=== PATIENT | male | born 1975 ===

== ENCOUNTER 2017-02-20 08:55 | Inpatient (IN) | payer OTHER, SELFPAY ==
[2017-02-20 09:33] VITALS: BMI 34.3
[2017-02-20] MEDS ORDERED: Midazolam 2 MG/2 ML VIAL ONE (13:35)
[2017-02-20] MEDS ORDERED: Propofol 10 mg/ml Inj (20 ML) ONE ×2 (13:35→14:24)
[2017-02-20] MEDS ORDERED: Lactated Ringer's 1,000 ML IV ONE ×2 (13:45→16:00)
[2017-02-20] MEDS ORDERED: Bupivacaine-Epi 0.25%-1:200,000 PF Inj ONE (13:49)
[2017-02-20] MEDS ORDERED: ceFAZolin IV 2 gm in Dextrose 1 GM/50 ML BAG IVPB ONE (13:49)
[2017-02-20] MEDS ORDERED: Oxycodone/Acetaminophen 5/325 mg Tab PO PRN (14:39)
[2017-02-20] MEDS ORDERED: HYDROmorphone 0.5 mg/0.5 ml ISec IVP PRN (14:51)
--- NOTE | 2017-02-20 15:38 | CP.PCM.CON ---
History of Present Illness - History of Present Illness History of Present Illness: Medical team consulted for medical issues post surgery. CC: "I feel good." HPI: Patient is a 41 year old male with no known PMHx presenting in PACU s/p anal fistulectomy POD #[address] Jeter. Medical team consulted for medical management. Patient is very sleepy. Patient denies any medical problems. Patient denies any pain. Patient denies fever, chills, sweating, chest pain, SOB, nausea, vomiting, dysuria. PMHx: denies PSHx: right eye surgery, anal fistulectomy 02/20/17 Home Meds: none Allergies: NKDA Social Hx: drinks 6 beers on the weekends, denies smoking history ever, denies illicit drug use Family Hx: denies CA, ID, CVA, HTN, DM in the family. Reviewed and not pertinent. Review of Systems - Constitutional Constitutional: absent: Chills, Fever - EENT Eyes: absent: Change in Vision Ears: absent: Dizziness - Cardiovascular Cardiovascular: absent: Chest Pain - Respiratory Respiratory: absent: Cough, Dyspnea - Gastrointestinal Gastrointestinal: absent: Abdominal Pain, Nausea, Vomiting - Genitourinary Genitourinary: absent: Dysuria - Musculoskeletal Musculoskeletal: absent: Back Pain, Neck Pain - Integumentary Integumentary: absent: Skin Pain - Neurological Neurological: absent: Headaches - Endocrine Endocrine: absent: Palpitations - Hematologic/Lymphatic Hematologic: absent: Easy Bleeding, Easy Bruising Past Patient History - Past Medical History & Family History Past Medical History?: Yes Past Family History: Reviewed and not pertinent - Past Social History Smoking Status: Never Smoked Alcohol: > 2 Drinks/Day (on weekends) Drugs: Denies - CARDIAC Hx Cardiac Disorders: No - PULMONARY Hx Respiratory Disorders: No - NEUROLOGICAL Hx Neurological Disorder: No - HEENT Hx HEENT Problems: No - RENAL Hx Chronic Kidney Disease: No - ENDOCRINE/METABOLIC Hx Endocrine Disorders: No - INTEGUMENTARY Hx Dermatological Problems: No - MUSCULOSKELETAL/RHEUMATOLOGICAL Hx Musculoskeletal Disorders: No - GASTROINTESTINAL Hx Gastrointestinal Disorders: Yes Other/Comment: Anal fistula? - GENITOURINARY/GYNECOLOGICAL Hx Genitourinary Disorders: No - PSYCHIATRIC Hx Psychophysiologic Disorder: No - SURGICAL HISTORY Hx Surgeries: No - ANESTHESIA Hx Anesthesia: No Has any member of the family had a problem w/ anesthesia?: No Meds Allergies/Adverse Reactions: Allergies Allergy/AdvReac Type Severity Reaction Status Date / Time No Known Allergies Allergy Verified 02/16/17 10:20 - Medications Medications: Current Medications Docusate Sodium (Colace) 100 mg PO BID [facility] Enoxaparin Sodium (Lovenox) 30 mg SC 1000,2200 [facility] Hydromorphone HCl (Dilaudid) 0.5 mg IVP Q5M PRN PRN Reason: Pain, severe (8-10) Stop: 02/20/17 16:51 Cefazolin Sodium 1,000 mg/ (Sodium Chloride) 50 mls @ 100 mls/hr IVPB Q8H [facility] Famotidine 20 mg/ Sodium (Chloride) 52 mls @ 100 mls/hr IV Q12 [facility] Ketorolac Tromethamine (Toradol) 30 mg IVP Q6 PRN PRN Reason: pain 8-10 Stop: 02/25/17 14:40 Ondansetron HCl (Zofran Inj) 4 mg IVP Q6 PRN PRN Reason: Nausea/Vomiting Ondansetron HCl (Zofran Inj) 4 mg IVP ONCE PRN PRN Reason: Nausea/Vomiting Stop: 02/20/17 16:52 Oxycodone/Acetaminophen (Percocet 5/325 Mg Tab) 2 tab PO Q4H PRN PRN Reason: pain Stop: 02/23/17 14:40 Sennosides (Senokot Tab) 17.2 mg PO HS [facility] Physical Exam - Constitutional Appears: Non-toxic, No Acute Distress - Head Exam Head Exam: NORMAL INSPECTION - Eye Exam Eye Exam: EOMI - ENT Exam ENT Exam: Mucous Membranes Moist - Respiratory Exam Respiratory Exam: Clear to Auscultation Bilateral, NORMAL BREATHING PATTERN. absent: Rales, Rhonchi, Wheezes - Cardiovascular Exam Cardiovascular Exam: REGULAR RHYTHM, +S1, +S2. absent: Gallop, Rubs, Systolic Murmur - GI/Abdominal Exam GI & Abdominal Exam: Normal Bowel Sounds, Soft. absent: Distended, Firm, Guarding, Tenderness - Extremities Exam Extremities exam: Positive for: normal capillary refill. Negative for: pedal edema - Neurological Exam Neurological exam: Alert - Psychiatric Exam Psychiatric exam: Normal Affect, Normal Mood - Skin Skin Exam: Normal Color, Warm Results - Vital Signs Recent Vital Signs: Last Vital Signs Temp 98.2 F 02/20/17 14:48 Pulse 89 02/20/17 15:00 Resp 19 02/20/17 15:00 BP 128/77 02/20/17 15:00 Pulse Ox 97 02/20/17 15:00 Assessment & Plan - Assessment and Plan (Free Text) Assessment: Patient has no acute medical issues. Management per surgery. Will follow. Call as needed. Anal fistula Managed by Dr. Jeter Regular Diet CBc and CMP in AM Colace 100mg PO BID Ancef 1gm IVPB Q8 Toradol 30mg IVP Q6 PRN Zofran 4mg IVP Q6 PRN Percocet 2tab Q4H PRN Sennosides A and B 17.2mg PO HS Prophylaxis Lovenox 30mg SC 1000,2200 Pepcid 20mg IV Q12
[2017-02-20] MEDS: Enoxaparin 30 mg Syringe SC SCH (22:12)
[2017-02-21 07:33] LABS: BASO % 0.5 % (0.0-2.0); EOS # 0.1 K/uL (0.0-0.7); EOS % 1.2 % (0.0-4.0); HEMOGLOBIN 15.1 g/dL (12.0-18.0); LYMPH # 1.9 K/uL (1.0-4.3); LYMPH % 23.4 % (20.0-40.0); MEAN CELL VOLUME 92.4 fL (80.0-94.0); MEAN CORPUSCULAR HEMOGLOBIN 30.9 pg (27.0-31.0); MEAN CORPUSCULAR HGB CONC 33.4 g/dL (33.0-37.0); MEAN PLATELET VOLUME 8.5 fL (7.2-11.7); MONO # 0.6 K/uL (0.0-0.8); NEUT # 5.7 K/uL (1.8-7.0); NEUT % 67.9 % (50.0-75.0); NRBC % 0.1 % (0.0-2.0); RBC 4.9 Mil/uL (4.40-5.90); RED CELL DISTRIBUTION WIDTH 13.5 % (11.5-14.5); WHITE BLOOD COUNT 8.3 K/uL (4.8-10.8)
[2017-02-21 07:47] LABS: ALBUMIN 3.9 g/dL (3.5-5.0)
[2017-02-21 07:50] LABS: AST/SGOT 24 U/L (17-59); GFR AFRICAN-AMERICAN > 60; GFR NON-AFRICAN AMERICAN > 60
[2017-02-21 07:51] LABS: ALB/GLOB RATIO 1.2 (1.0-2.1); ALT/SGPT 38 U/L (21-72); BLOOD UREA NITROGEN 18 mg/dL (9-20); CALCIUM 8.8 mg/dl (8.6-10.4)
[2017-02-21] MEDS: Enoxaparin 30 mg Syringe SC SCH ×2 (10:07→21:58)
--- NOTE | 2017-02-21 10:40 | OP ---
PROCEDURE DATE: PREOPERATIVE DIAGNOSIS: Perianal fistula and abscess. POSTOPERATIVE DIAGNOSIS: Perianal fistula and abscess. PROCEDURE PERFORMED: Drainage of rectal abscess with I and D of perianal fistula. SURGEON: Jeff Jeter MD TYPE OF ANESTHESIA: General. ESTIMATED BLOOD LOSS: 30 mL. POSTOPERATIVE CONDITION: Stable. 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 DESCRIPTION OF PROCEDURE: The patient was taken to the operating room and general anesthesia was administered with the patient in the the prone jackknife position. The abscess was drained, cultured and a probe was placed to the midline of the rectum *------* with Goodsall's rule. The overlying tissue was divided and intersphincteric abscess was noted. The fistulous cavity was cauterized, removed and bleeding was controlled using the Bovie. A larger blood vessel was repaired. The wound was irrigated with saline and packed with wet saline gauze after cultures were taken. The patient tolerated the procedure well and returned to the recovery room in stable condition. Jeff Jeter MD
[2017-02-21] MEDS ORDERED: ceFAZolin 1 gm FROZEN Premix 1 GM/50 ML ML IVPB SCH (11:00)
--- NOTE | 2017-02-21 11:51 | CP.PCM.PN ---
Subjective - Date & Time of Evaluation Date of Evaluation: 02/21/17 Time of Evaluation: 11:48 - Subjective Subjective: PGY-[address] Mackenzie's service: Pt seen and examined at bedside. Nursing reports no acute events overnight. Pt is POD#1 of fistulectomy. He reports feeling only a "little bit" of pain at the site of the surgery, and denied needing any of the PRN pain medications. He admits to trepidation regarding moving his bowels, but denies abdominal pain, nausea, vomiting, or diarrhea. Objective - Vital Signs/Intake and Output Vital Signs (last 24 hours): Temp Pulse Resp BP Pulse Ox 98.3 F 89 20 124/83 95 02/21/17 09:29 02/21/17 09:29 02/21/17 09:29 02/21/17 09:29 02/21/17 09:29 Intake and Output: 02/21/17 02/21/17 06:59 18:59 Intake Total 940 Output Total 400 Balance 540 - Medications Medications: Current Medications Docusate Sodium (Colace) 100 mg PO BID [facility] Last Admin: 02/21/17 10:07 Dose: 100 mg Enoxaparin Sodium (Lovenox) 30 mg SC 1000,2200 [facility] Last Admin: 02/21/17 10:07 Dose: 30 mg Famotidine (Pepcid) 20 mg IVP Q12 [facility] Cefazolin Sodium (Ancef) 1 gm in 50 mls @ 100 mls/hr IVPB Q8H [facility] Ketorolac Tromethamine (Toradol) 30 mg IVP Q6 PRN PRN Reason: pain 8-10 Stop: 02/25/17 14:40 Ondansetron HCl (Zofran Inj) 4 mg IVP Q6 PRN PRN Reason: Nausea/Vomiting Oxycodone/Acetaminophen (Percocet 5/325 Mg Tab) 2 tab PO Q4H PRN PRN Reason: pain Stop: 02/23/17 14:40 Pneumococcal Polyvalent Vaccine (Pneumovax 23 Vaccine) 0.5 ml IM .ONCE ONE Stop: 02/22/17 10:01 Sennosides (Senokot Tab) 17.2 mg PO HS [facility] Last Admin: 02/20/17 22:12 Dose: 17.2 mg - Labs Labs: 02/21/17 07:08 02/21/17 07:08 - Constitutional Appears: Non-toxic, No Acute Distress - Head Exam Head Exam: ATRAUMATIC, NORMAL INSPECTION, NORMOCEPHALIC - Eye Exam Eye Exam: EOMI. absent: Scleral icterus Pupil Exam: PERRL - ENT Exam ENT Exam: Mucous Membranes Moist - Neck Exam Neck Exam: Full ROM. absent: Lymphadenopathy - Respiratory Exam Respiratory Exam: Clear to Ausculation Bilateral, NORMAL BREATHING PATTERN. absent: Accessory Muscle Use, Rales, Rhonchi, Wheezes - Cardiovascular Exam Cardiovascular Exam: REGULAR RHYTHM, +S1, +S2 - GI/Abdominal Exam GI & Abdominal Exam: Soft, Normal Bowel Sounds. absent: Tenderness - Rectal Exam Additional comments: Bandage clean, dry, intact Gauze in place at site of fistulectomy - Extremities Exam Extremities Exam: Normal Inspection. absent: Pedal Edema, Tenderness - Back Exam Back Exam: absent: CVA tenderness (L), CVA tenderness (R) - Neurological Exam Neurological Exam: Alert, Awake, Oriented x3 - Psychiatric Exam Psychiatric exam: Normal Affect, Normal Mood - Skin Skin Exam: Dry, Normal Color, Warm Assessment and Plan - Assessment and Plan (Free Text) Plan: Anal fistula Managed by Dr. Jeter Pt afebrile overnight, normotensive AM CBC/CMP WNL - No leukocytosis/anemia Colace 100mg PO BID Ancef 1gm IVPB Q8 (start 02/21) Toradol 30mg IVP Q6 PRN Zofran 4mg IVP Q6 PRN Percocet 2tab Q4H PRN Sennosides A and B 17.2mg PO HS Prophylaxis Lovenox 30mg SC 1000,2200 Pepcid 20mg IV Q12 Regular Diet Discussed with Dr. Avril Davis PGY-1
[2017-02-21] MEDS: ceFAZolin 1 gm FROZEN Premix 1 GM/50 ML ML IVPB SCH ×2 (13:00→22:00)
[2017-02-22 01:32] VITALS: RESP 20
[2017-02-22] MEDS: ceFAZolin 1 gm FROZEN Premix 1 GM/50 ML ML IVPB SCH ×2 (04:06→12:15)
[2017-02-22 08:09] VITALS: BP 134/87; PULSE 83; TEMP 98.8
[2017-02-22 08:15] LABS: BASO # 0.1 K/uL (0.0-0.2); BASO % 0.7 % (0.0-2.0); EOS # 0.1 K/uL (0.0-0.7); EOS % 0.9 % (0.0-4.0); HEMOGLOBIN 15.8 g/dL (12.0-18.0); LYMPH # 1.8 K/uL (1.0-4.3); LYMPH % 19.5 % (20.0-40.0); MEAN CELL VOLUME 92.7 fL (80.0-94.0); MEAN CORPUSCULAR HEMOGLOBIN 30.8 pg (27.0-31.0); MEAN CORPUSCULAR HGB CONC 33.2 g/dL (33.0-37.0); MEAN PLATELET VOLUME 8.3 fL (7.2-11.7); MONO # 0.6 K/uL (0.0-0.8); MONO % 6.1 % (0.0-10.0); NEUT # 6.9 K/uL (1.8-7.0); NEUT % 72.8 % (50.0-75.0); NRBC % 0.1 % (0.0-2.0); RBC 5.15 Mil/uL (4.40-5.90); RED CELL DISTRIBUTION WIDTH 13.6 % (11.5-14.5); WHITE BLOOD COUNT 9.4 K/uL (4.8-10.8)
[2017-02-22 08:24] VITALS: O2SAT 97
[2017-02-22 08:38] LABS: ALBUMIN 4.1 g/dL (3.5-5.0)
[2017-02-22 08:40] LABS: GFR AFRICAN-AMERICAN > 60; GFR NON-AFRICAN AMERICAN > 60
[2017-02-22 08:41] LABS: ALB/GLOB RATIO 1.2 (1.0-2.1); ALT/SGPT 32 U/L (21-72); AST/SGOT 22 U/L (17-59); BLOOD UREA NITROGEN 10 mg/dL (9-20)
[2017-02-22 08:42] LABS: CALCIUM 8.9 mg/dl (8.6-10.4); MAGNESIUM 2.3 mg/dL (1.6-2.3)
[2017-02-22] MEDS: Enoxaparin 30 mg Syringe SC SCH (09:47)
[2017-02-22] MEDS ORDERED: Pneumococcal 23-Valent Vaccine IM ONE (10:00)
--- NOTE | 2017-02-22 12:12 | CP.PCM.PN ---
<Zbigniew Davis - Last Filed: 02/22/17 12:09> Subjective - Date & Time of Evaluation Date of Evaluation: 02/22/17 Time of Evaluation: 12:10 - Subjective Subjective: PGY-[address] Pritchett's Service: Pt seen and examined at bedside. Nursing reports changing dressing as per Dr. Jeter's instructions this AM. Pt is POD#2 of fistulectomy. He reports only a minor pain at the site of the surgery, and denied needing any of the PRN pain medications. Patient reports one BM post-procedure. He admits tolerating diet and urinating without difficulty. He denies chest pain, palpitations, abdominal pain, nausea, vomiting or diarrhea. Objective - Vital Signs/Intake and Output Vital Signs (last 24 hours): Temp Pulse Resp BP Pulse Ox 98.8 F 83 20 134/87 97 02/22/17 08:08 02/22/17 08:08 02/22/17 08:08 02/22/17 08:08 02/22/17 08:23 Intake and Output: 02/22/17 02/22/17 06:59 18:59 Intake Total 350 Balance 350 - Medications Medications: Current Medications Docusate Sodium (Colace) 100 mg PO BID [facility] Last Admin: 02/22/17 09:46 Dose: 100 mg Enoxaparin Sodium (Lovenox) 30 mg SC 1000,2200 [facility] Last Admin: 02/22/17 09:47 Dose: 30 mg Famotidine (Pepcid) 20 mg IVP Q12 [facility] Last Admin: 02/22/17 09:46 Dose: 20 mg Cefazolin Sodium (Ancef) 1 gm in 50 mls @ 100 mls/hr IVPB Q8H [facility] Last Admin: 02/22/17 04:06 Dose: 100 mls/hr Ketorolac Tromethamine (Toradol) 30 mg IVP Q6 PRN PRN Reason: pain 8-10 Stop: 02/25/17 14:40 Ondansetron HCl (Zofran Inj) 4 mg IVP Q6 PRN PRN Reason: Nausea/Vomiting Oxycodone/Acetaminophen (Percocet 5/325 Mg Tab) 2 tab PO Q4H PRN PRN Reason: pain Stop: 02/23/17 14:40 Sennosides (Senokot Tab) 17.2 mg PO HS [facility] Last Admin: 02/21/17 21:58 Dose: 17.2 mg - Labs Labs: 02/22/17 08:04 02/22/17 08:04 - Additional Findings Additional findings: - Constitutional Appears: Non-toxic, No Acute Distress - Head Exam Head Exam: ATRAUMATIC, NORMAL INSPECTION, NORMOCEPHALIC - Eye Exam Eye Exam: EOMI. absent: Scleral icterus Pupil Exam: PERRL - ENT Exam ENT Exam: Mucous Membranes Moist - Neck Exam Neck Exam: Full ROM. absent: Lymphadenopathy - Respiratory Exam Respiratory Exam: Clear to Ausculation Bilateral, NORMAL BREATHING PATTERN. absent: Accessory Muscle Use, Rales, Rhonchi, Wheezes - Cardiovascular Exam Cardiovascular Exam: REGULAR RHYTHM, +S1, +S2 - GI/Abdominal Exam GI & Abdominal Exam: Soft, Normal Bowel Sounds. absent: Tenderness - Rectal Exam Additional comments: Bandage clean, dry, intact Gauze in place at site of fistulectomy - Extremities Exam Extremities Exam: Normal Inspection. absent: Pedal Edema, Tenderness - Back Exam Back Exam: absent: CVA tenderness (L), CVA tenderness (R) - Neurological Exam Neurological Exam: Alert, Awake, Oriented x3 - Psychiatric Exam Psychiatric exam: Normal Affect, Normal Mood - Skin Skin Exam: Dry, Normal Color, Warm Assessment and Plan - Assessment and Plan (Free Text) Plan: Anal fistula Managed by Dr. Jeter Pt afebrile overnight, normotensive AM CBC/CMP WNL - No leukocytosis/anemia Colace 100mg PO BID Ancef 1gm IVPB Q8 (start 02/21) Toradol 30mg IVP Q6 PRN Zofran 4mg IVP Q6 PRN Percocet 2tab Q4H PRN Sennosides A and B 17.2mg PO HS Hypokalemia K 3.5 on AM labs - repleted with Kdur Prophylaxis Lovenox 30mg SC 1000,2200 Pepcid 20mg IV Q12 Regular Diet Disposition: Dr. Jeter has marked pt for discharge. Medical team signing off. Discussed with Dr. Yarely Davis PGY-1 <Maritza Pritchett V - Last Filed: 02/22/17 21:03> Objective - Vital Signs/Intake and Output Vital Signs (last 24 hours): Temp Pulse Resp BP Pulse Ox 98.8 F 83 20 134/87 97 02/22/17 08:08 02/22/17 08:08 02/22/17 08:08 02/22/17 08:08 02/22/17 08:23 Intake and Output: 02/22/17 02/23/17 18:59 06:59 Intake Total 290 Balance 290 - Labs Labs: 02/22/17 08:04 02/22/17 08:04 Attending/Attestation - Attestation I have personally seen and examined this patient.: Yes I have fully participated in the care of the patient.: Yes I have reviewed all pertinent clinical information, including history, physical exam and plan: Yes Notes (Text): Patient seen, examined, and case discussed with day-time resident. Patient seen at bedside this morning. Patient awake and alert in no acute distress. Dressing changed prior to my arrival. Per patient, he was instructed by surgery to follow-up this Monday at his office post-surgery. Patient reports he sees VINCENT Rush as outpatient. Patient had bowel movement today. Discharge instructions per general surgery who is primary on the case. Surgery decision-making including preoperative/intraoperative/post operative per general surgery. Patient's potassium repleted prior to discharge. Patient is medically stable. Advised to follow-up with general surgery and primary care doctor. Assessment/Plan 1) Anal fistula Primary/general surgery: Dr. Yang Surgery decision-making including preoperative/intraoperative/post operative per general surgery. Pt afebrile overnight, normotensive AM CBC/CMP WNL - No leukocytosis/anemia POD 2: Drainage of rectal abscess with I&D of perianal fistula Management per surgery: * Colace 100mg PO BID * Ancef 1gm IVPB Q8 (start 02/21) * Toradol 30mg IVP Q6 PRN * Zofran 4mg IVP Q6 PRN * Percocet 2tab Q4H PRN * Sennosides A and B 17.2mg PO HS 2) Hypokalemia * K 3.5 on AM labs * Given repleted with Kdur 3) Prophylaxis * Anticoagulation per surgery: Lovenox 30mg SC 1000,2200 * Pepcid 20mg IV Q12 * Regular Diet Disposition: Dr. Jeter (general surgery and primary) has discharged patient after dressing change. Medicine team has signed off.
[2017-02-22] MEDS ORDERED: Potassium Chloride 20 mEq ER Tab PO ONE (12:30)
== END 2017-02-22 14:45 | disposition home or self-care (01) | DRG 153 ==
LOC: C.SDS 08:55 → C.9S 14:10 → C.3T 20:05
PROVIDERS: ADMIT Surgery; ATTEND Surgery
PROC: 0D9P0ZZ Drainage of Rectum, Open Approach (ICD-10-PCS; 2017-02-20)
PROC: 0HB9XZZ Excision of Perineum Skin, External Approach (ICD-10-PCS; 2017-02-20)
PROC: 0D9Q0ZZ Drainage of Anus, Open Approach (ICD-10-PCS; principal; 2017-02-20 11:00)
DX: K61.2 Anorectal abscess (principal); K60.2 Anal fissure, unspecified; K61.4 Intrasphincteric abscess

== ENCOUNTER 2017-02-26 20:00 | Emergency (ER) | payer OTHER ==
[2017-02-26 20:00] VITALS: BMI 34.3
[2017-02-26] MEDS ORDERED: Sodium Chloride 0.9% 1,000 ML IV ONE (20:38)
[2017-02-26] MEDS ORDERED: Sodium Chloride 0.9% 1,000 ML ONE (20:44)
--- NOTE | 2017-02-26 20:50 | C.PDOC ---
History Of Present Illness A 41 y/o M s/p rectal fistuolotomy, c/o lower abdominal pain and unable to void and have bm. pt reports unable to void today. reports uanble to have bm since surgery, but passing gas. bladder scan was done on arrival and pt has more than 1 liter of urine in his bladder. Chinchilla placed, with resolution of pain Denies fever, chills, nausea, vomiting, or any other complaints. Time Seen by Provider: 02/26/17 20:29 Chief Complaint (Nursing): Male Genitourinary History Per: Patient History/Exam Limitations: no limitations Onset/Duration Of Symptoms: Hrs Current Symptoms Are (Timing): Still Present Severity: Mild Quality Of Discomfort: "Pain" Associated Symptoms: Constipation Recent travel outside of the [place]: No Additional History Per: Patient Past Medical History Reviewed: Historical Data, Nursing Documentation, Vital Signs Vital Signs: Last Vital Signs Temp 98.3 F 02/26/17 20:07 Pulse 80 02/26/17 20:07 Resp 14 02/26/17 20:07 BP 129/84 02/26/17 20:07 Pulse Ox 99 02/26/17 20:52 - Medical History PMH: Denies: Chronic Kidney Disease - [facility] Procedures DRAINAGE OF ANUS, OPEN APPROACH (02/20/17) DRAINAGE OF RECTUM, OPEN APPROACH (02/20/17) EXCISION OF PERINEUM SKIN, EXTERNAL APPROACH (02/20/17) Family History: States: Unknown Family Hx - Social History Hx Alcohol Use: No Hx Substance Use: No Review Of Systems Except As Marked, All Systems Reviewed And Found Negative. Constitutional: Negative for: Fever, Chills Gastrointestinal: Positive for: Abdominal Pain (Lower abdominal pain), Constipation (No BM today). Negative for: Nausea, Vomiting Physical Exam - Physical Exam Appears: Non-toxic, No Acute Distress Skin: Warm, Dry Head: Atraumatic, Normacephalic Cardiovascular: Rhythm Regular Respiratory: Normal Breath Sounds, No Rales, No Rhonchi, No Wheezing Gastrointestinal/Abdominal: Soft, No Tenderness, Distention (Moderate abdominal distention) Rectal: Other (Packing and clean dressing in place) Neurological/Psych: Oriented x3, Normal Speech, Normal Cognition ED Course And Treatment - Laboratory Results Result Diagrams: 02/26/17 20:46 02/26/17 20:46 O2 Sat by Pulse Oximetry: 99 (RA) Pulse Ox Interpretation: Normal Medical Decision Making Medical Decision Making: Impression: A 41 y/o M c/o lower abdominal pain and being unable to have bowel movement today. Pt s/p rectal fistuolotomy. Chinchilla in place. urinary retention. Plans: -Blood work up -IV fluids -Reassess 1020: abd sof tno ttp. obstructive series neg. case discussed with dr calles, covering dr jeter. advise d/c home with mineral oil and flomax. nursing home social worker f/u up with dr jeter. labs unremarkable electrolytes unremarkalbe. nrormal cr. stable for outpt management. Disposition - Disposition Referrals: Ibrahima Chacon MD [Staff Provider] - Jeff Jeter MD [Staff Provider] - Disposition: HOME/ ROUTINE Disposition Time: 22:23 Condition: STABLE Additional Instructions: please follow up with specialists and your doctor. return to er with worsening symptoms or concerns. Prescriptions: Mineral Oil [Mineral Oil 30ml] 30 ml PO DAILY PRN #5 cup PRN Reason: Constipation Tamsulosin [Flomax] 0.4 mg PO DAILY #10 cap Instructions: Constipation (ED), Urinary Retention in Men (ED) - Clinical Impression Clinical Impression: Urinary retention, Constipation - Scribe Statement The provider has reviewed the documentation as recorded by the Scribe Yennifer garcía All medical record entries made by the Scribe were at my direction and personally dictated by me. I have reviewed the chart and agree that the record accurately reflects my personal performance of the history, physical exam, medical decision making, and the department course for this patient. I have also personally directed, reviewed, and agree with the discharge instructions and disposition.
[2017-02-26 20:51] LABS: BASO % 0.3 % (0.0-2.0); EOS # 0.1 K/uL (0.0-0.7); EOS % 0.9 % (0.0-4.0); HEMATOCRIT 45.8 % (35.0-51.0); LYMPH # 2.3 K/uL (1.0-4.3); LYMPH % 23.6 % (20.0-40.0); MEAN CELL VOLUME 92.4 fL (80.0-94.0); MEAN CORPUSCULAR HEMOGLOBIN 31.2 pg (27.0-31.0); MEAN CORPUSCULAR HGB CONC 33.7 g/dL (33.0-37.0); MEAN PLATELET VOLUME 7.9 fL (7.2-11.7); MONO # 0.6 K/uL (0.0-0.8); MONO % 6.2 % (0.0-10.0); NRBC % 0.1 % (0.0-2.0); RED CELL DISTRIBUTION WIDTH 13.3 % (11.5-14.5); WHITE BLOOD COUNT 9.6 K/uL (4.8-10.8)
[2017-02-26 20:56] LABS: RBC URINE < 1 /hpf (0-3); URINE BILIRUBIN NEGATIVE (NEGATIVE); URINE BLOOD NEGATIVE (NEGATIVE); URINE COLOR Yellow (YELLOW); URINE GLUCOSE (UA) NORMAL (Normal); URINE KETONE NEGATIVE (NEGATIVE); URINE LEUKOCYTE ESTERASE NEG Leu/uL (Negative); URINE PROTEIN NEGATIVE (NEGATIVE); URINE UROBILINOGEN NORMAL mg/dL (0.2-1.0); WBC URINE < 1 /hpf (0-5)
[2017-02-26 20:58] LABS: INR 1.1
[2017-02-26 21:04] LABS: CHLORIDE 97 mmol/L (98-107); POTASSIUM 4.3 mmol/L (3.6-5.2); SODIUM 139 mmol/L (132-148)
[2017-02-26 21:06] LABS: CARBON DIOXIDE 25 mmol/L (22-30); GFR AFRICAN-AMERICAN > 60
[2017-02-26 21:07] LABS: ALB/GLOB RATIO 1.2 (1.0-2.1); ALKALINE PHOSPHATASE 85 U/L (38-126); ALT/SGPT 44 U/L (21-72); AST/SGOT 27 U/L (17-59); BLOOD UREA NITROGEN 9 mg/dL (9-20); CALCIUM 9.3 mg/dl (8.6-10.4); GLUCOSE,RANDOM 115 mg/dL (75-110); TOTAL PROTEIN 7.8 g/dL (6.3-8.3)
[2017-02-27 00:12] VITALS: BP 145/89; PULSE 111; RESP 18; TEMP 97.9; O2SAT 95
--- NOTE | 2017-02-27 11:53 | RAD ---
PROCEDURE: Radiographs of the chest and abdomen (obstructive series) HISTORY: Abdominal distention COMPARISON: None available. FINDINGS: CHEST: The cardiomediastinal silhouette appears within normal limits of size. No focal consolidation, significant pleural effusion, or definite pneumothorax identified.Please note that chest x-ray has limited sensitivity for the detection of pulmonary masses. ABDOMEN AND PELVIS: Nonspecific bowel gas pattern. Moderate to severe constipation. No definite free air. Degenerative changes of the spine. Curvature of the lumbar spine convex to the right. IMPRESSION: Moderate to severe constipation.
== END 2017-02-26 22:35 | disposition home or self-care (01) ==
LOC: C.ER 20:00
DX: K59.00 Constipation, unspecified (principal); R33.9 Retention of urine, unspecified
CPT/HCPCS: 51702; 74022; 80053; 81001; 83690; 85025; 85610; 85730; 96360; 99285; J7040

== ENCOUNTER 2017-03-31 09:30 | Emergency (ER) | payer OTHER ==
[2017-03-31 09:35] VITALS: BMI 31.2
[2017-03-31 09:38] VITALS: BP 118/79; PULSE 72; RESP 18; TEMP 99; O2SAT 99
--- NOTE | 2017-03-31 12:30 | C.PDOC ---
History Of Present Illness 41 yr old male presents to the ER for wound check. Patient is s/p anal fissure repair 1 month ago. Patient states he last saw his surgeon 1 week ago and was discharged from care. Patient denies fever, nausea, vomiting, abdominal pain, diarrhea, constipation or pain with defecation. Time Seen by Provider: 03/31/17 09:43 Chief Complaint (Nursing): Medical Clearance History Per: Patient History/Exam Limitations: no limitations Onset/Duration Of Symptoms: Days Past Medical History Reviewed: Historical Data, Nursing Documentation, Vital Signs Vital Signs: Last Vital Signs Temp 99.0 F 03/31/17 09:35 Pulse 72 03/31/17 09:35 Resp 18 03/31/17 09:35 BP 118/79 03/31/17 09:35 Pulse Ox 99 03/31/17 12:31 - [facility] Procedures DRAINAGE OF ANUS, OPEN APPROACH (02/20/17) DRAINAGE OF RECTUM, OPEN APPROACH (02/20/17) EXCISION OF PERINEUM SKIN, EXTERNAL APPROACH (02/20/17) Family History: States: No Known Family Hx - Social History Hx Alcohol Use: No Hx Substance Use: No Review Of Systems Except As Marked, All Systems Reviewed And Found Negative. Constitutional: Negative for: Fever Gastrointestinal: Negative for: Nausea, Vomiting, Abdominal Pain, Diarrhea, Constipation Physical Exam - Physical Exam Appears: Non-toxic, No Acute Distress Skin: Warm, Dry Head: Atraumatic, Normacephalic Oral Mucosa: Moist Chest: Symmetrical, No Tenderness Cardiovascular: Rhythm Regular, No Murmur Respiratory: Normal Breath Sounds, No Rales, No Rhonchi, No Stridor, No Wheezing Rectal: Other ((+) Healing, superficial wound. No erythema. ) Extremity: Normal ROM, No Swelling Neurological/Psych: Oriented x3, Normal Speech, Normal Motor ED Course And Treatment O2 Sat by Pulse Oximetry: 99 (RA ) Pulse Ox Interpretation: Normal Disposition - Disposition Referrals: [facility] [Outside] [facility] [Outside] Jeff Jeter MD [Staff Provider] - Disposition: HOME/ ROUTINE Disposition Time: 09:45 Condition: GOOD Additional Instructions: Thank you for letting us take care of you today. Your provider was Dr. Zendejas. You were treated for an anal fissure. The emergency medical care you received today was directed at your acute symptoms. If you were prescribed any medication, please fill it and take as directed. It may take several days for your symptoms to resolve. Return to the Emergency Department if your symptoms worsen, do not improve, or if you have any other problems. Please contact your doctor or call one of the physicians/clinics you have been referred to that are listed on the Patient Visit Information form that is included in your discharge packet. Bring any paperwork you were given at discharge with you along with any medications you are taking to your follow up visit. Our treatment cannot replace ongoing medical care by a primary care provider (PCP) outside of the emergency department. Thank you for allowing the [facility] team to be part of your care today. Follow up with Dr. Jeter if you have any concerns. Continue to clean the area as directed. Instructions: Anal Fissure (ED) Forms: Gen Discharge Inst Italian Print Language: PORTUGUESE - Clinical Impression Clinical Impression: Anal fissure - Anthonyibe Statement The provider has reviewed the documentation as recorded by the Dima Yousif Provider Attestation: All medical record entries made by the Dima were at my direction and personally dictated by me. I have reviewed the chart and agree that the record accurately reflects my personal performance of the history, physical exam, medical decision making, and the department course for this patient. I have also personally directed, reviewed, and agree with the discharge instructions and disposition.
== END 2017-03-31 09:59 | disposition home or self-care (01) ==
LOC: C.ER 09:30
DX: Z48.01 Encounter for change or removal of surgical wound dressing (principal); K60.2 Anal fissure, unspecified

== ENCOUNTER 2017-04-18 09:10 | Emergency (ER) | payer OTHER ==
[2017-04-18 09:10] VITALS: BMI 31.2
[2017-04-18 09:21] VITALS: BP 116/80; PULSE 78; RESP 18; TEMP 98.2; O2SAT 100
--- NOTE | 2017-04-18 09:46 | C.PDOC ---
History Of Present Illness 41 yo male s/p anal fistulectomy 02/20/[address] Jeter, present today for re- evaluation after noted some greenish discharges yesterday from wound. Pt admits , notes discharges just one time yesterday " on toilet paper". Otherwise, pt denies fever, chills, abd. pain, N/V, denies change in BM, denies any wound discharges today. Ambulate to Ed for evaluation, not in any apparent distress. Time Seen by Provider: 04/18/17 09:25 Chief Complaint (Nursing): Abnormal Skin Integrity History Per: Patient Past Medical History Reviewed: Historical Data, Nursing Documentation, Vital Signs Vital Signs: Last Vital Signs Temp 98.2 F 04/18/17 09:19 Pulse 78 04/18/17 09:19 Resp 18 04/18/17 09:19 BP 116/80 04/18/17 09:19 Pulse Ox 100 04/18/17 09:56 - Medical History PMH: Denies: Chronic Kidney Disease - [facility] Procedures DRAINAGE OF ANUS, OPEN APPROACH (02/20/17) DRAINAGE OF RECTUM, OPEN APPROACH (02/20/17) EXCISION OF PERINEUM SKIN, EXTERNAL APPROACH (02/20/17) Family History: States: No Known Family Hx - Social History Hx Alcohol Use: No Hx Substance Use: No - Immunization History Hx Tetanus Toxoid Vaccination: No Hx Influenza Vaccination: No Hx Pneumococcal Vaccination: No Review Of Systems Except As Marked, All Systems Reviewed And Found Negative. Constitutional: Negative for: Fever, Chills Gastrointestinal: Negative for: Nausea, Vomiting, Abdominal Pain, Diarrhea Musculoskeletal: Negative for: Back Pain Skin: Positive for: Lesions Neurological: Negative for: Weakness, Numbness Physical Exam - Physical Exam Appears: Well, Non-toxic, No Acute Distress Skin: Normal Color, Warm Rectal: Rectal Tone (good), Other (Right gluteus inner aspect close to anus, well healing scar. NO open wound noted, area soft, no erythema, no induration or flactulance palpable. No proximal streaking.) Extremity: No Pedal Edema, No Deformity Neurological/Psych: Oriented x3, Normal Speech ED Course And Treatment O2 Sat by Pulse Oximetry: 100 Pulse Ox Interpretation: Normal Progress Note: On re-evaluation, pt is afebrile, hemodynamicaly stable. Non- toxic. Abd: benign, (-) guarding, (-) rebound, (-) localized tenderness. back : (-) CVA tenderness. rectal: well healed post-surgical site Right gluteus, no cellulitis, no open wound noted, no flactulance. Case discussed with Steffany Zamorano and discharge with outpt f/u recommend. Pt advised and ref. to f/u with in 1-2 days for re-eavluation. Return to ED if any worsening or new changes. Disposition Counseled Patient/Family Regarding: Diagnosis, Need For Followup - Disposition Referrals: Jeff Jeter MD [Staff Provider] - Disposition: HOME/ ROUTINE Disposition Time: 09:44 Condition: STABLE Additional Instructions: Warm salty water sitz baths Follow up with in 1-2 days for re-evaluation. Return to ED if any worsening or new changes. Instructions: Rectal Fistulotomy (DC) Forms: [employer] (Albanian) - Clinical Impression Clinical Impression: Wound check, abscess, Anal fissure
== END 2017-04-18 10:00 | disposition home or self-care (01) ==
LOC: C.ER 09:10
DX: Z51.89 Encounter for other specified aftercare (principal); K60.2 Anal fissure, unspecified; L02.91 Cutaneous abscess, unspecified

== ENCOUNTER 2017-05-09 08:57 | Inpatient (IN) | payer OTHER ==
[2017-05-09 09:02] VITALS: BMI 28.3
--- NOTE | 2017-05-09 09:33 | C.PDOC ---
History Of Present Illness 41 y/o male brought to ed by ems with complaints of persistent discharge from wound for 3 weeks. Patient was seen at ed on 04/18 for same symptoms, s/p anal fistulectomy on 02/20/[address] Guerrero. Patient state she followed up with Dr. Guerrero on 04/21, was advised to Do Sitz baths "and it would take time" as per patient. Patient also states he saw PMD for same last week and was advised same time. Patient reports purulent discharge is the same and intermittent pain to area. Patient denies fever and is compliant with Sitz baths instructions. VIA TRANS PERSIST DC FROM WOUND X 3 WEEKS. SEEN 04/18 FOR SAME, s/p anal fistulectomy by Dr. Guerrero. PS FU W DR GUERRERO ON 04/21, WAS ADVISED TO DO SITZ BATHS "AND IT WOULD TAKE TIME". SAW PMD FOR SAME LAST WEEK AND WAS ADVISED SAME THING. PURULENT DC SAME, INTERMIT PAIN TO AREA. NO FEVER. COMPLIANT W SITZ BATHS INSTRUCTIONS. EXAM NAD NONTOXIC SKIN +R BUTTOCK POST OP WOUND W SCANT PURULENT DC, LOCAL TEND. NO FOCAL FLUCTUANCE. MIN LOCAL ERYTHEMA REMAINDE NREG Time Seen by Provider: 05/09/17 09:26 Chief Complaint (Nursing): Wound Check History Per: Patient History/Exam Limitations: no limitations Onset/Duration Of Symptoms: Days Ago Current Symptoms Are (Timing): Still Present Quality Of Symptoms: Painful Past Medical History Reviewed: Historical Data, Nursing Documentation, Vital Signs Vital Signs: Last Vital Signs Temp 98.2 F 05/09/17 10:52 Pulse 72 05/09/17 10:52 Resp 18 05/09/17 10:52 BP 118/62 05/09/17 10:52 Pulse Ox 100 05/09/17 11:22 Surgical History: No Surg Hx - [facility] Procedures DRAINAGE OF ANUS, OPEN APPROACH (02/20/17) DRAINAGE OF RECTUM, OPEN APPROACH (02/20/17) EXCISION OF ANUS, OPEN APPROACH (02/20/17) Family History: States: No Known Family Hx - Social History Hx Alcohol Use: No Hx Substance Use: No - Immunization History Hx Tetanus Toxoid Vaccination: No Hx Influenza Vaccination: No Hx Pneumococcal Vaccination: No Review Of Systems Except As Marked, All Systems Reviewed And Found Negative. Constitutional: Negative for: Fever Gastrointestinal: Negative for: Constipation, Rectal Pain Skin: Negative for: Rash Physical Exam - Physical Exam Appears: Non-toxic, No Acute Distress Skin: Warm, Dry, No Rash, Other (Right buttock post op wound with scant purulent discharge. Local tenderness. No focal flunctuance. Minimal local erythema) Head: Normacephalic Eye(s): bilateral: Normal Inspection Oral Mucosa: Moist Neck: Normal ROM, Supple Chest: Symmetrical Back: No CVA Tenderness Extremity: Normal ROM, Capillary Refill (<2 seconds) Extremity: Bilateral: Atraumatic Neurological/Psych: Oriented x3, Normal Motor, Normal Sensation ED Course And Treatment - Laboratory Results Result Diagrams: 05/09/17 10:30 05/09/17 10:30 O2 Sat by Pulse Oximetry: 100 (RA) Pulse Ox Interpretation: Normal Progress - Re-Evaluation Re-evaluation Note: 05/09/17 10:00 D/W DR GUERRERO AWARE OF ER FINDINGS. STATES TO ADMIT TO HIM, SHYLA BENSON, HOSPITALIST CONSULT 05/09/17 10:35 D/W DR Andrew MOHAMUD WILL CONSULT FOR MED 05/09/17 10:58 ADVISED BY O.R. PT TO GO TO O.R. AT 1400. ADMIT CHANGED TO SDS - Data Reviewed Data Reviewed: Lab, Diagnostic imaging, EKG, Old records Disposition Counseled Patient/Family Regarding: Studies Performed, Diagnosis - Disposition Disposition: HOSPITALIZED Disposition Time: 10:02 Condition: STABLE Forms: [facility] (Chinese) - POA Present On Arrival: Surgical Site Infection - Clinical Impression Clinical Impression: Abscess, Post-operative wound abscess - Scribe Statement The provider has reviewed the documentation as recorded by the Anthonyibcliff Crooks All medical record entries made by the Anthonyibcliff were at my direction and personally dictated by me. I have reviewed the chart and agree that the record accurately reflects my personal performance of the history, physical exam, medical decision making, and the department course for this patient. I have also personally directed, reviewed, and agree with the discharge instructions and disposition. Decision To Admit - Pt Status Changed To: Hospital Disposition Of: Observation - . Bed Request Type: Regular Admitting Physician: Jeff Guerrero Patient Diagnosis: Abscess, Post-operative wound abscess
[2017-05-09] MEDS ORDERED: Sodium Chloride 0.9% 1,000 ML IV ONE (10:22)
[2017-05-09] MEDS ORDERED: Piperacillin/Tazobact 3.375 gm 100 ML IV STA (10:24)
[2017-05-09] MEDS ORDERED: Sodium Chloride 0.9% 1,000 ML ONE (10:35)
[2017-05-09] MEDS ORDERED: Piperacillin/Tazobact 3.375 gm 100 ML IVPB ONE (10:39)
[2017-05-09 10:40] LABS: BASO % 0.4 % (0.0-2.0); EOS # 0.1 K/uL (0.0-0.7); EOS % 1.1 % (0.0-4.0); HEMATOCRIT 42.9 % (35.0-51.0); LYMPH # 1.8 K/uL (1.0-4.3); LYMPH % 24.5 % (20.0-40.0); MEAN CELL VOLUME 90.6 fL (80.0-94.0); MEAN CORPUSCULAR HEMOGLOBIN 31.4 pg (27.0-31.0); MEAN CORPUSCULAR HGB CONC 34.7 g/dL (33.0-37.0); MEAN PLATELET VOLUME 7.6 fL (7.2-11.7); MONO # 0.4 K/uL (0.0-0.8); RED CELL DISTRIBUTION WIDTH 13.6 % (11.5-14.5); WHITE BLOOD COUNT 7.4 K/uL (4.8-10.8)
[2017-05-09 10:42] LABS: INR 1.1
[2017-05-09 10:52] LABS: CHLORIDE 101 mmol/L (98-107); POTASSIUM 3.6 mmol/L (3.6-5.2); SODIUM 143 mmol/L (132-148)
[2017-05-09 10:55] LABS: BLOOD UREA NITROGEN 12 mg/dL (9-20); CALCIUM 9.2 mg/dl (8.6-10.4); CARBON DIOXIDE 27 mmol/L (22-30); GFR AFRICAN-AMERICAN > 60; GLUCOSE,RANDOM 95 mg/dL (75-110)
--- NOTE | 2017-05-09 11:11 | RAD ---
HISTORY: preop COMPARISON: Chest x-ray portion of obstructive series performed 02/26/17 TECHNIQUE: Chest PA and lateral FINDINGS: Examination limited by habitus. LUNGS: No focal consolidation. Please note that chest x-ray has limited sensitivity for the detection of pulmonary masses. PLEURA: Minimal blunting of the costophrenic angles may reflect tiny effusions versus pleural thickening. No definite pneumothorax . CARDIOVASCULAR: Heart size appears within normal limits. OSSEOUS STRUCTURES: No acute osseous abnormality identified. VISUALIZED UPPER ABDOMEN: Unremarkable. OTHER FINDINGS: None. IMPRESSION: Minimal blunting of the costophrenic angles may reflect tiny effusions versus pleural thickening.
--- NOTE | 2017-05-09 11:29 | CP.PCM.HP ---
<Jessica Contreras - Last Filed: 05/09/17 14:38> History of Present Illness - History of Present Illness History of Present Illness: Medicine Consult Note for Dr. Óscar Briggs CC: discharge from rectal wound HPI: 41M with no significant PMHx presents to the ED due to persistent drainage from a rectal abscess. Patient reported this started several months ago, which led him to have an anal fistulectomy on 02/20/[address] Jeter. Afterwards, patient continued to have pain, tenderness, and drainage from the surgical site. He was instructed by Dr. Jeter to perform Sitz baths, however this did not provide any alleviation for the patient. Due to continued pain and discharge from the area, patient came into the ED. PMHx: Denied PSHx: anal fistulectomy on 02/20/17 Meds: Denied All: NKDA SHx: Denied any tobacco, illicit drug use, or ETOH. Patient has not worked since 02/2017 due to the abscess, works at a flower shop. FHx: Unremarkable PMD: Dr. Delaney Present on Admission - Present on Admission Any Indicators Present on Admission: No Past Patient History - Infectious Disease Hx of Infectious Diseases: None - Past Medical History & Family History Past Medical History?: Yes - Past Social History Smoking Status: Never Smoked - CARDIAC Hx Cardiac Disorders: No - PULMONARY Hx Respiratory Disorders: No - NEUROLOGICAL Hx Neurological Disorder: No - HEENT Hx HEENT Problems: No - RENAL Hx Chronic Kidney Disease: No - ENDOCRINE/METABOLIC Hx Endocrine Disorders: No - HEMATOLOGICAL/ONCOLOGICAL Hx Blood Disorders: No - INTEGUMENTARY Hx Dermatological Problems: No - MUSCULOSKELETAL/RHEUMATOLOGICAL Hx Musculoskeletal Disorders: No Hx Falls: No - GASTROINTESTINAL Hx Gastrointestinal Disorders: Yes Other/Comment: Anal fistula? - GENITOURINARY/GYNECOLOGICAL Hx Genitourinary Disorders: No - PSYCHIATRIC Hx Substance Use: No - SURGICAL HISTORY Hx Surgeries: Yes Other/Comment: s/p rectal fistulotomy. February- anal surgery - ANESTHESIA Hx Anesthesia: Yes Hx Anesthesia Reactions: No Hx Malignant Hyperthermia: No Meds Allergies/Adverse Reactions: Allergies Allergy/AdvReac Type Severity Reaction Status Date / Time No Known Allergies Allergy Verified 05/09/17 09:01 Physical Exam - Constitutional Appears: No Acute Distress, Chronically Ill - Head Exam Head Exam: NORMAL INSPECTION, NORMOCEPHALIC - Eye Exam Eye Exam: EOMI, Normal appearance, PERRL Pupil Exam: NORMAL ACCOMODATION - ENT Exam ENT Exam: Mucous Membranes Moist, Normal Exam - Respiratory Exam Respiratory Exam: Clear to Auscultation Bilateral, NORMAL BREATHING PATTERN. absent: Decreased Breath Sounds, Wheezes - Cardiovascular Exam Cardiovascular Exam: REGULAR RHYTHM, RRR, +S1, +S2 - GI/Abdominal Exam GI & Abdominal Exam: Normal Bowel Sounds, Soft. absent: Distended, Tenderness - Rectal Exam Rectal Exam: Deferred - Back Exam Additional comments: SKIN +R BUTTOCK POST OP WOUND W SCANT PURULENT DC, LOCAL TEND. NO FOCAL FLUCTUANCE. MIN LOCAL ERYTHEMA - Neurological Exam Neurological exam: Alert, CN II-XII Intact, Oriented x3 - Psychiatric Exam Psychiatric exam: Normal Affect, Normal Mood - Skin Skin Exam: Dry, Intact, Normal Color, Warm Results - Vital Signs Recent Vital Signs: Last Vital Signs Temp 98.2 F 05/09/17 10:52 Pulse 72 05/09/17 10:52 Resp 18 05/09/17 10:52 BP 118/62 05/09/17 10:52 Pulse Ox 100 05/09/17 11:22 - Labs Result Diagrams: 05/09/17 10:30 05/09/17 10:30 Labs: Laboratory Results - last 24 hr 05/09/17 05/09/17 05/09/17 10:30 10:30 10:30 WBC 7.4 RBC 4.74 Hgb 14.9 Hct 42.9 MCV 90.6 MCH 31.4 H MCHC 34.7 RDW 13.6 Plt Count 222 MPV 7.6 Neut % (Auto) 68.0 Lymph % (Auto) 24.5 [place] % (Auto) 6.0 Eos % (Auto) 1.1 Baso % (Auto) 0.4 Neut # 5.0 Lymph # 1.8 [place] # 0.4 Eos # 0.1 Baso # 0.0 PT 12.1 INR 1.1 APTT 33 Sodium 143 Potassium 3.6 Chloride 101 Carbon Dioxide 27 Anion Gap 18 BUN 12 Creatinine 0.7 L Est GFR ( Amer) > 60 Est GFR (Non-Af Amer) > 60 Random Glucose 95 Calcium 9.2 Blood Type Antibody Screen 05/09/17 10:30 WBC RBC Hgb Hct MCV MCH MCHC RDW Plt Count MPV Neut % (Auto) Lymph % (Auto) [place] % (Auto) Eos % (Auto) Baso % (Auto) Neut # Lymph # [place] # Eos # Baso # PT INR APTT Sodium Potassium Chloride Carbon Dioxide Anion Gap BUN Creatinine Est GFR ( Amer) Est GFR (Non-Af Amer) Random Glucose Calcium Blood Type O POSITIVE Antibody Screen Negative Assessment & Plan - Assessment and Plan (Free Text) Plan: Rectal Abscess * S/P Anal Fistuloectomy by Dr. Jeter - February 2017 * OR today scheduled for 2pm for repeat Anal Fistuloectomy * Patient received 1 dose of Zosyn in the ED * NS @ 100cc/hr * Resume IV Abx as per surgery All labs and prior imaging studies reviewed. No abscess seen on prior CT performed in February, Obstructive series showed mild to moderate constipation. Medicine Team will follow this patient closely, thank you for the consult. Prophylactic Measures * GI PPX: Protonix 40mg PO daily * DVT PPX: SCDs, heparin will be resumed as per surgery * NPO currently, will resume Regular Diet after DW Dr. Óscar Briggs, Diane SHERWOOD, PGY-1 <Syed Briggs - Last Filed: 05/09/17 18:03> Results - Vital Signs Recent Vital Signs: Last Vital Signs Temp 97 F L 05/09/17 15:04 Pulse 66 05/09/17 16:30 Resp 20 05/09/17 16:30 BP 112/75 05/09/17 16:30 Pulse Ox 100 05/09/17 16:30 - Labs Result Diagrams: 05/09/17 10:30 05/09/17 10:30 Labs: Laboratory Results - last 24 hr 05/09/17 05/09/17 05/09/17 10:30 10:30 10:30 WBC 7.4 RBC 4.74 Hgb 14.9 Hct 42.9 MCV 90.6 MCH 31.4 H MCHC 34.7 RDW 13.6 Plt Count 222 MPV 7.6 Neut % (Auto) 68.0 Lymph % (Auto) 24.5 [place] % (Auto) 6.0 Eos % (Auto) 1.1 Baso % (Auto) 0.4 Neut # 5.0 Lymph # 1.8 [place] # 0.4 Eos # 0.1 Baso # 0.0 PT 12.1 INR 1.1 APTT 33 Sodium 143 Potassium 3.6 Chloride 101 Carbon Dioxide 27 Anion Gap 18 BUN 12 Creatinine 0.7 L Est GFR ( Amer) > 60 Est GFR (Non-Af Amer) > 60 Random Glucose 95 Calcium 9.2 Blood Type Antibody Screen 05/09/17 10:30 WBC RBC Hgb Hct MCV MCH MCHC RDW Plt Count MPV Neut % (Auto) Lymph % (Auto) [place] % (Auto) Eos % (Auto) Baso % (Auto) Neut # Lymph # [place] # Eos # Baso # PT INR APTT Sodium Potassium Chloride Carbon Dioxide Anion Gap BUN Creatinine Est GFR ( Amer) Est GFR (Non-Af Amer) Random Glucose Calcium Blood Type O POSITIVE Antibody Screen Negative Attending/Attestation - Attestation I have personally seen and examined this patient.: Yes I have fully participated in the care of the patient.: Yes I have reviewed all pertinent clinical information: Yes Notes (Text): 05/09/17 18:03 Patient was seen and examined shortly after resident. Exam, Assessment and Plan were thoroughly gone over with the resident. Syed Briggs D.O.
[2017-05-09] MEDS ORDERED: Lidocaine 1% Inj (20ml) ONE (14:19)
[2017-05-09] MEDS ORDERED: ceFAZolin 1 gm FROZEN Premix 0 GM/0 ML ML IVPB ONE (14:20)
[2017-05-09] MEDS ORDERED: Lactated Ringer's 1,000 ML IV ONE (14:20)
[2017-05-09] MEDS ORDERED: Bupivacaine HCl 0.25% PF (10 ml) Inj ONE (14:29)
[2017-05-09] MEDS ORDERED: Midazolam 2 MG/2 ML VIAL ONE (14:30)
[2017-05-09] MEDS ORDERED: Propofol 10 mg/ml Inj (20 ML) ONE (14:30)
[2017-05-09] MEDS: Bupivacaine HCl 0.25% PF (10 ml) Inj ONE ×2 (14:46→14:55)
[2017-05-09] MEDS ORDERED: Oxycodone/Acetaminophen 5/325 mg Tab PO PRN (15:04)
[2017-05-09] MEDS: Piperacillin/Tazobact 3.375 GM in Sodium Chloride 100 ML IVPB SCH (16:00)
--- NOTE | 2017-05-09 16:23 | OP ---
PROCEDURE DATE: 05/09/2017 PREOPERATIVE DIAGNOSIS: Recurrent rectal abscess. POSTOPERATIVE DIAGNOSIS: Recurrent abscess with new anorectal fistula. PROCEDURE PERFORMED: Intersphincteric anal fistulotomy. SURGEON: Jeff Jeter MD ANESTHESIA: General. BLOOD LOSS: 20 mL POSTOPERATIVE CONDITION: Stable. INDICATIONS FOR SURGERY: This is a 41-year-old who several months ago underwent a fistulotomy for fistula in ano. presents with new symptoms of drainage and was taken to the OR for exam under anesthesia. GROSS FINDINGS: He had a finding of anal fistula near the previous site of the anal fistula. It appeared to be either a new fistula or recurrence of the previous one. At any rate, a probe was passed Intersphincterically into the anus in the midline as per Goodsall's rule and a fistulotomy was performed in the usual fashion. DESCRIPTION OF PROCEDURE: The patient was taken to the operating room. General anesthesia was administered, placed in the lithotomy position. Rectal area was prepped and draped and anoscopy was carried out with the above findings. A probe was passed Intersphincterically into the midline of the anus and the overlying tissue was divided using a Bovie. Bleeding was controlled using the Bovie and the fistular tract was cauterized. The wound was irrigated with saline and packed with wet saline gauze. The patient tolerated the procedure well and returned to the recovery room in stable condition. Jeff Jeter MD
[2017-05-09] MEDS: Enoxaparin 30 mg Syringe SC SCH (21:22)
[2017-05-10] MEDS: Piperacillin/Tazobact 3.375 GM in Sodium Chloride 100 ML IVPB SCH ×3 (00:30→18:06)
--- NOTE | 2017-05-10 06:29 | CP.PCM.PN ---
<Jessica Contreras - Last Filed: 05/10/17 07:03> Subjective - Date & Time of Evaluation Date of Evaluation: 05/10/17 Time of Evaluation: 06:00 - Subjective Subjective: Medicine Note for Dr. Óscar Briggs Patient was seen and examined at bedside. Patient reports he tolerated the surgery well. He is ambulating, tolerating diet, and last bm was yesterday. Denied fever, chills, headache, SOB, chest pain, abdominal pain, n/v/d/c, or urinary symptoms. Objective - Vital Signs/Intake and Output Vital Signs (last 24 hours): Temp Pulse Resp BP Pulse Ox 98.0 F 77 20 114/77 97 05/10/17 00:19 05/10/17 00:19 05/10/17 00:19 05/10/17 00:19 05/10/17 00:19 Intake and Output: 05/09/17 05/10/17 18:59 06:59 Intake Total 600 Output Total 300 Balance -300 600 - Medications Medications: Current Medications Docusate Sodium (Colace) 100 mg PO BID [facility] Last Admin: 05/09/17 18:59 Dose: 100 mg Enoxaparin Sodium (Lovenox) 30 mg SC 1000,2200 [facility] Last Admin: 05/09/17 21:22 Dose: 30 mg Piperacillin Sod/Tazobactam (Sod 3.375 gm/ Sodium Chloride) 100 mls @ 200 mls/ hr IVPB Q8H [facility] Last Admin: 05/10/17 00:30 Dose: 100 mls/hr Ketorolac Tromethamine (Toradol) 30 mg IVP Q6 PRN PRN Reason: pain 8-10 Stop: 05/14/17 15:05 Ondansetron HCl (Zofran Inj) 4 mg IVP Q6 PRN PRN Reason: Nausea/Vomiting Oxycodone/Acetaminophen (Percocet 5/325 Mg Tab) 2 tab PO Q4H PRN PRN Reason: pain 1-7 Stop: 05/12/17 15:05 Pantoprazole Sodium (Protonix Ec Tab) 40 mg PO DAILY [facility] - Labs Labs: 05/09/17 10:30 05/09/17 10:30 PT 12.1 SECONDS (9.7-12.2) 05/09/17 10:30 INR 1.1 05/09/17 10:30 APTT 33 SECONDS (21-34) 05/09/17 10:30 - Additional Findings Additional findings: - Constitutional Appears: No Acute Distress, Chronically Ill - Head Exam Head Exam: NORMAL INSPECTION, NORMOCEPHALIC - Eye Exam Eye Exam: EOMI, Normal appearance, PERRL Pupil Exam: NORMAL ACCOMODATION - ENT Exam ENT Exam: Mucous Membranes Moist, Normal Exam - Respiratory Exam Respiratory Exam: Clear to Auscultation Bilateral, NORMAL BREATHING PATTERN. absent: Decreased Breath Sounds, Wheezes - Cardiovascular Exam Cardiovascular Exam: REGULAR RHYTHM, RRR, +S1, +S2 - GI/Abdominal Exam GI & Abdominal Exam: Normal Bowel Sounds, Soft. absent: Distended, Tenderness - Rectal Exam Rectal Exam: Deferred - Back Exam Additional comments: Dressing is soaked with some gabino, - Neurological Exam Neurological exam: Alert, CN II-XII Intact, Oriented x3 - Psychiatric Exam Psychiatric exam: Normal Affect, Normal Mood - Skin Skin Exam: Dry, Intact, Normal Color, Warm Assessment and Plan - Assessment and Plan (Free Text) Plan: Rectal Abscess * S/P Anal Fistuloectomy by Dr. Jeter - February 2017 * S/P repeat Anal Fistuloectomy POD #1 * Patient received 1 dose of Zosyn in the ED * Started on Zosyn Q8H as per surgery * Percocet, Toradol, and Morphine PRN for pain * On Colace 100mg PO BID Prophylactic Measures * GI PPX: Protonix 40mg PO daily * DVT PPX: SCDs, Lovenox 30 SC BID * Resumed Regular Diet All labs and prior imaging studies reviewed. No abscess seen on prior CT performed in February 2017, Obstructive series (02/2017) showed mild to moderate constipation. Medicine Team reviewed vitals overnight, patient remained afebrile. Labs reviewed no leukocytosis. Patient has no past medical history. All current management as per Surgery (primary). Thank you for this consult, the Medicine Team will be signing off. Diane Bradley Dr., DO, PGY-1 <Syed Briggs - Last Filed: 05/10/17 07:56> Objective - Vital Signs/Intake and Output Vital Signs (last 24 hours): Temp Pulse Resp BP Pulse Ox 98.0 F 77 20 114/77 97 05/10/17 00:19 05/10/17 00:19 05/10/17 00:19 05/10/17 00:19 05/10/17 00:19 Intake and Output: 05/10/17 05/10/17 06:59 18:59 Intake Total 600 Balance 600 - Medications Medications: Current Medications Docusate Sodium (Colace) 100 mg PO BID [facility] Last Admin: 05/09/17 18:59 Dose: 100 mg Enoxaparin Sodium (Lovenox) 30 mg SC 1000,2200 [facility] Last Admin: 05/09/17 21:22 Dose: 30 mg Piperacillin Sod/Tazobactam (Sod 3.375 gm/ Sodium Chloride) 100 mls @ 200 mls/ hr IVPB Q8H [facility] Last Admin: 05/10/17 00:30 Dose: 100 mls/hr Ketorolac Tromethamine (Toradol) 30 mg IVP Q6 PRN PRN Reason: pain 8-10 Stop: 05/14/17 15:05 Ondansetron HCl (Zofran Inj) 4 mg IVP Q6 PRN PRN Reason: Nausea/Vomiting Oxycodone/Acetaminophen (Percocet 5/325 Mg Tab) 2 tab PO Q4H PRN PRN Reason: pain 1-7 Stop: 05/12/17 15:05 Pantoprazole Sodium (Protonix Ec Tab) 40 mg PO DAILY [facility] - Labs Labs: 05/10/17 07:13 05/09/17 10:30 PT 12.1 SECONDS (9.7-12.2) 05/09/17 10:30 INR 1.1 05/09/17 10:30 APTT 33 SECONDS (21-34) 05/09/17 10:30 Attending/Attestation - Attestation I have personally seen and examined this patient.: Yes I have fully participated in the care of the patient.: Yes I have reviewed all pertinent clinical information, including history, physical exam and plan: Yes Notes (Text): 05/10/17 07:55 Patient was seen and examined at 7:45 AM 05/10/17. Exam, assessment and plan were gone over with the resident. Patient is stable from Medicine Perspective. NO chronic issues to manage. Continue care as per Primary Surgery Team. Medicine Service will be signing off on this very pleasant patient. Thank you. Syed Briggs D.O.
[2017-05-10 07:20] LABS: BASO % 0.5 % (0.0-2.0); EOS # 0.1 K/uL (0.0-0.7); EOS % 1.3 % (0.0-4.0); HEMATOCRIT 41.8 % (35.0-51.0); LYMPH # 2.5 K/uL (1.0-4.3); LYMPH % 26.1 % (20.0-40.0); MEAN CELL VOLUME 91.5 fL (80.0-94.0); MEAN CORPUSCULAR HEMOGLOBIN 31.5 pg (27.0-31.0); MEAN CORPUSCULAR HGB CONC 34.4 g/dL (33.0-37.0); MEAN PLATELET VOLUME 7.4 fL (7.2-11.7); MONO # 0.7 K/uL (0.0-0.8); MONO % 7.2 % (0.0-10.0); NRBC % 0.1 % (0.0-2.0); RED CELL DISTRIBUTION WIDTH 13.6 % (11.5-14.5); WHITE BLOOD COUNT 9.5 K/uL (4.8-10.8)
[2017-05-10 07:59] LABS: CHLORIDE 100 mmol/L (98-107); POTASSIUM 4.3 mmol/L (3.6-5.2); SODIUM 138 mmol/L (132-148)
[2017-05-10 08:01] LABS: ALB/GLOB RATIO 1.1 (1.0-2.1); ALKALINE PHOSPHATASE 62 U/L (38-126); AST/SGOT 29 U/L (17-59); BILIRUBIN,TOTAL 1.3 mg/dL (0.2-1.3); BLOOD UREA NITROGEN 9 mg/dL (9-20); CARBON DIOXIDE 29 mmol/L (22-30); GFR AFRICAN-AMERICAN > 60; GLUCOSE,RANDOM 86 mg/dL (75-110); TOTAL PROTEIN 7.4 g/dL (6.3-8.3)
[2017-05-10 08:02] LABS: ALT/SGPT 31 U/L (21-72); MAGNESIUM 1.9 mg/dL (1.6-2.3); PHOSPHOROUS 3.8 mg/dL (2.5-4.5)
[2017-05-10] MEDS: Pantoprazole 40 mg EC Tab PO SCH (09:26)
[2017-05-10] MEDS: Enoxaparin 30 mg Syringe SC SCH ×2 (09:27→21:34)
[2017-05-11] MEDS: Piperacillin/Tazobact 3.375 GM in Sodium Chloride 100 ML IVPB SCH ×4 (00:50→23:45)
[2017-05-11 06:27] LABS: BASO % 0.3 % (0.0-2.0); EOS # 0.2 K/uL (0.0-0.7); EOS % 2.3 % (0.0-4.0); HEMATOCRIT 41.4 % (35.0-51.0); LYMPH # 1.9 K/uL (1.0-4.3); LYMPH % 27.7 % (20.0-40.0); MEAN CELL VOLUME 91.8 fL (80.0-94.0); MEAN CORPUSCULAR HEMOGLOBIN 31.8 pg (27.0-31.0); MEAN CORPUSCULAR HGB CONC 34.6 g/dL (33.0-37.0); MEAN PLATELET VOLUME 7.7 fL (7.2-11.7); MONO # 0.5 K/uL (0.0-0.8); MONO % 7.4 % (0.0-10.0); RED CELL DISTRIBUTION WIDTH 13.4 % (11.5-14.5); WHITE BLOOD COUNT 6.7 K/uL (4.8-10.8)
[2017-05-11 07:43] LABS: CHLORIDE 101 mmol/L (98-107); SODIUM 139 mmol/L (132-148)
[2017-05-11 07:44] LABS: POTASSIUM 4.1 mmol/L (3.6-5.2)
[2017-05-11 07:45] LABS: GFR AFRICAN-AMERICAN > 60
[2017-05-11 07:46] LABS: ALB/GLOB RATIO 1.1 (1.0-2.1); ALKALINE PHOSPHATASE 59 U/L (38-126); ALT/SGPT 31 U/L (21-72); AST/SGOT 17 U/L (17-59); BILIRUBIN,TOTAL 1.1 mg/dL (0.2-1.3); BLOOD UREA NITROGEN 9 mg/dL (9-20); CARBON DIOXIDE 28 mmol/L (22-30); GLUCOSE,RANDOM 90 mg/dL (75-110); MAGNESIUM 2.1 mg/dL (1.6-2.3); PHOSPHOROUS 4.1 mg/dL (2.5-4.5); TOTAL PROTEIN 7.3 g/dL (6.3-8.3)
[2017-05-11] MEDS: Enoxaparin 30 mg Syringe SC SCH ×2 (09:19→21:39)
[2017-05-11] MEDS: Pantoprazole 40 mg EC Tab PO SCH (09:19)
--- NOTE | 2017-05-11 18:03 | CP.PCM.PN ---
Subjective - Date & Time of Evaluation Date of Evaluation: 05/11/17 Time of Evaluation: 18:00 - Subjective Subjective: vitals stable, no nausea, no recall uneventful anesthetic pain managemnt by Objective - Vital Signs/Intake and Output Vital Signs (last 24 hours): Temp Pulse Resp BP Pulse Ox 98 F 73 20 105/72 98 05/11/17 16:10 05/11/17 16:10 05/11/17 16:10 05/11/17 16:10 05/11/17 16:10 Intake and Output: 05/11/17 05/11/17 06:59 18:59 Intake Total 100 400 Balance 100 400 - Medications Medications: Current Medications Docusate Sodium (Colace) 100 mg PO BID [facility] Last Admin: 05/11/17 09:19 Dose: 100 mg Enoxaparin Sodium (Lovenox) 30 mg SC 1000,2200 [facility] Last Admin: 05/11/17 09:19 Dose: 30 mg Piperacillin Sod/Tazobactam (Sod 3.375 gm/ Sodium Chloride) 100 mls @ 200 mls/ hr IVPB Q8H [facility] Last Admin: 05/11/17 16:50 Dose: 200 mls/hr Ondansetron HCl (Zofran Inj) 4 mg IVP Q6 PRN PRN Reason: Nausea/Vomiting Oxycodone/Acetaminophen (Percocet 5/325 Mg Tab) 2 tab PO Q4H PRN PRN Reason: pain 1-7 Stop: 05/12/17 15:05 Pantoprazole Sodium (Protonix Ec Tab) 40 mg PO DAILY [facility] Last Admin: 05/11/17 09:19 Dose: 40 mg - Labs Labs: 05/11/17 06:20 05/11/17 06:20 PT 12.1 SECONDS (9.7-12.2) 05/09/17 10:30 INR 1.1 05/09/17 10:30 APTT 33 SECONDS (21-34) 05/09/17 10:30
[2017-05-12 06:36] LABS: BASO % 0.5 % (0.0-2.0); EOS # 0.2 K/uL (0.0-0.7); EOS % 2.2 % (0.0-4.0); HEMATOCRIT 41.6 % (35.0-51.0); LYMPH # 2.2 K/uL (1.0-4.3); LYMPH % 31.7 % (20.0-40.0); MEAN CELL VOLUME 91.4 fL (80.0-94.0); MEAN CORPUSCULAR HEMOGLOBIN 31.4 pg (27.0-31.0); MEAN CORPUSCULAR HGB CONC 34.3 g/dL (33.0-37.0); MEAN PLATELET VOLUME 7.5 fL (7.2-11.7); MONO # 0.4 K/uL (0.0-0.8); MONO % 6.3 % (0.0-10.0); RED CELL DISTRIBUTION WIDTH 13.6 % (11.5-14.5); WHITE BLOOD COUNT 6.9 K/uL (4.8-10.8)
[2017-05-12 07:14] LABS: CHLORIDE 100 mmol/L (98-107); POTASSIUM 3.8 mmol/L (3.6-5.2); SODIUM 138 mmol/L (132-148)
[2017-05-12 07:16] LABS: ALB/GLOB RATIO 1.1 (1.0-2.1); ALKALINE PHOSPHATASE 58 U/L (38-126); ALT/SGPT 31 U/L (21-72); AST/SGOT 19 U/L (17-59); BILIRUBIN,TOTAL 1.1 mg/dL (0.2-1.3); BLOOD UREA NITROGEN 9 mg/dL (9-20); CARBON DIOXIDE 27 mmol/L (22-30); GFR AFRICAN-AMERICAN > 60; TOTAL PROTEIN 7.5 g/dL (6.3-8.3)
[2017-05-12 07:17] LABS: CALCIUM 9.2 mg/dl (8.6-10.4); GLUCOSE,RANDOM 84 mg/dL (75-110); PHOSPHOROUS 4.1 mg/dL (2.5-4.5)
[2017-05-12] MEDS: Piperacillin/Tazobact 3.375 GM in Sodium Chloride 100 ML IVPB SCH ×2 (08:30→16:52)
[2017-05-12] MEDS: Pantoprazole 40 mg EC Tab PO SCH (09:27)
[2017-05-12] MEDS: Enoxaparin 30 mg Syringe SC SCH ×2 (09:27→21:20)
[2017-05-13] MEDS: Piperacillin/Tazobact 3.375 GM in Sodium Chloride 100 ML IVPB SCH ×2 (00:39→08:25)
[2017-05-13 01:17] VITALS: RESP 20
[2017-05-13 08:01] LABS: BASO % 0.4 % (0.0-2.0); EOS # 0.1 K/uL (0.0-0.7); EOS % 2.1 % (0.0-4.0); HEMATOCRIT 41.1 % (35.0-51.0); LYMPH # 2.1 K/uL (1.0-4.3); LYMPH % 30.3 % (20.0-40.0); MEAN CELL VOLUME 91.8 fL (80.0-94.0); MEAN CORPUSCULAR HEMOGLOBIN 31.8 pg (27.0-31.0); MEAN CORPUSCULAR HGB CONC 34.6 g/dL (33.0-37.0); MEAN PLATELET VOLUME 7.8 fL (7.2-11.7); MONO # 0.5 K/uL (0.0-0.8); MONO % 7.4 % (0.0-10.0); NRBC % 0.1 % (0.0-2.0); RED CELL DISTRIBUTION WIDTH 13.3 % (11.5-14.5); WHITE BLOOD COUNT 6.8 K/uL (4.8-10.8)
[2017-05-13 08:06] VITALS: BP 115/81; PULSE 77; TEMP 98.1; O2SAT 97
[2017-05-13 08:24] LABS: CHLORIDE 100 mmol/L (98-107)
[2017-05-13 08:25] LABS: SODIUM 137 mmol/L (132-148)
[2017-05-13 08:27] LABS: ALB/GLOB RATIO 1.2 (1.0-2.1); ALKALINE PHOSPHATASE 58 U/L (38-126); ALT/SGPT 29 U/L (21-72); AST/SGOT 31 U/L (17-59); BLOOD UREA NITROGEN 11 mg/dL (9-20); CARBON DIOXIDE 26 mmol/L (22-30); GFR AFRICAN-AMERICAN > 60; TOTAL PROTEIN 7.5 g/dL (6.3-8.3)
[2017-05-13 08:28] LABS: CALCIUM 9.2 mg/dl (8.6-10.4); GLUCOSE,RANDOM 89 mg/dL (75-110); PHOSPHOROUS 4.2 mg/dL (2.5-4.5)
[2017-05-13] MEDS: Enoxaparin 30 mg Syringe SC SCH (09:06)
[2017-05-13] MEDS: Pantoprazole 40 mg EC Tab PO SCH (09:07)
--- NOTE | 2017-05-14 06:42 | CARD ---
APPROVED REPORT EKG Measurement Heart [id number] <Conclusion> Normal sinus rhythm Normal ECG
== END 2017-05-13 10:30 | disposition home or self-care (01) | DRG 899 ==
LOC: C.ER 08:57 → C.6T 08:57 → C.9E 10:22 → UNDOADMOB 10:22 → C.SDS 11:08 → C.9S 15:04 → C.6T 18:34
PROVIDERS: ADMIT Surgery; ATTEND Surgery
PROC: 0D8R0ZZ Division of Anal Sphincter, Open Approach (ICD-10-PCS; principal; 2017-05-09 11:45)
DX: T81.4XXA Infection following a procedure, initial encounter (principal); K60.5 Anorectal fistula

== ENCOUNTER 2017-06-23 09:04 | Emergency (ER) | payer OTHER ==
[2017-06-23 09:04] VITALS: BMI 28.3
[2017-06-23 09:17] VITALS: BP 116/80; PULSE 85; RESP 16; TEMP 97.6; O2SAT 99
--- NOTE | 2017-06-23 09:47 | C.PDOC ---
History Of Present Illness 41 year old male presents to ED for evaluation of a burning sensation in his anus/rectum which began a 2-3 days ago. Patient is s/p anal fistula surgery by Dr. Guerrero in early May 2017. Patient states he followed up with Dr. Guerrero after the surgery as instructed, and was told the burning sensation is due to healing of area. He denies fever, chills, rectal bleeding/discharge, or abdominal pain at this time. Time Seen by Provider: 06/23/17 09:27 Chief Complaint (Nursing): Abnormal Skin Integrity History Per: Patient History/Exam Limitations: no limitations Onset/Duration Of Symptoms: Days Current Symptoms Are (Timing): Still Present Quality Of Symptoms: denies: Draining Severity: Mild Additional History Per: Patient Past Medical History Reviewed: Historical Data, Nursing Documentation, Vital Signs Vital Signs: Last Vital Signs Temp 97.6 F 06/23/17 09:16 Pulse 85 06/23/17 09:16 Resp 16 06/23/17 09:16 BP 116/80 06/23/17 09:16 Pulse Ox 99 06/23/17 12:05 - Medical History PMH: No Chronic Diseases Denies: Chronic Kidney Disease Other Surgeries: anal fistula surgery - [facility] Procedures DIVISION OF ANAL SPHINCTER, OPEN APPROACH (05/09/17) DRAINAGE OF ANUS, OPEN APPROACH (02/20/17) DRAINAGE OF RECTUM, OPEN APPROACH (02/20/17) EXCISION OF ANUS, OPEN APPROACH (02/20/17) Family History: States: No Known Family Hx - Social History Hx Alcohol Use: No Hx Substance Use: No - Immunization History Hx Tetanus Toxoid Vaccination: No Hx Influenza Vaccination: No Hx Pneumococcal Vaccination: No Review Of Systems Except As Marked, All Systems Reviewed And Found Negative. Constitutional: Negative for: Fever, Chills Cardiovascular: Negative for: Chest Pain Respiratory: Negative for: Cough, Shortness of Breath Gastrointestinal: Positive for: Other (rectal burning ). Negative for: Nausea, Vomiting, Abdominal Pain, Diarrhea, Constipation, Melena, Hematochezia, Hematemesis Physical Exam - Physical Exam Appears: Well, Non-toxic, No Acute Distress Skin: Normal Color, Warm, Dry Oral Mucosa: Moist Cardiovascular: Rhythm Regular Respiratory: Normal Breath Sounds, No Rales, No Rhonchi, No Wheezing Gastrointestinal/Abdominal: Normal Exam, Bowel Sounds, Soft, No Tenderness, No Guarding, No Rebound Rectal: Normal Exam, No Hemorrhoids (external ), No Mass, No Tenderness, Other ( well-healing surgical scar at 9 o'clock position. no fissures. no palpable abscess. no bleeding. no erythema) Neurological/Psych: Oriented x3 Gait: Steady ED Course And Treatment O2 Sat by Pulse Oximetry: 99 (on RA) Pulse Ox Interpretation: Normal Progress Note: Explained to patient that his physical exam is normal, and that burning is likely due to healing. However, patient given recticare Rx and instructed to try it. He understands if symptoms persist, he needs to follow up with his surgeon Dr. Guerrero within 1 week for further evaluation. Disposition Counseled Patient/Family Regarding: Diagnosis, Need For Followup, Rx Given - Disposition Referrals: Jeff Guerrero MD [Staff Provider] - Disposition: HOME/ ROUTINE Disposition Time: 09:45 Condition: STABLE Additional Instructions: SEGUIMIENTO CON DR GUERRERO DENTRO DE 1 SEMANA USE MEDICAMENTOS SEGN SEA NECESARIO REGRESE AL LOREE DE EMERGENCIA SI LOS SNTOMAS EMPEORAN Prescriptions: Lidocaine [Recticare] 1 appl RC BID #1 tub Forms: SideStep (Danish) Print Language: MONTENEGRIN - POA Present On Arrival: None - Clinical Impression Clinical Impression: Rectal burning - Scribe Statement The provider has reviewed the documentation as recorded by the Scribe (Melissa Briggs) Provider Attestation: All medical record entries made by the Scribe were at my direction and personally dictated by me. I have reviewed the chart and agree that the record accurately reflects my personal performance of the history, physical exam, medical decision making, and the department course for this patient. I have also personally directed, reviewed, and agree with the discharge instructions and disposition.
== END 2017-06-23 09:50 | disposition home or self-care (01) ==
LOC: C.ER 09:04
DX: K62.89 Other specified diseases of anus and rectum (principal)

== ENCOUNTER 2017-07-21 08:38 | Emergency (ER) | payer OTHER ==
[2017-07-21 08:38] VITALS: BMI 28.3
[2017-07-21 08:59] VITALS: BP 124/84; PULSE 85; RESP 20; TEMP 98.2; O2SAT 99
--- NOTE | 2017-07-21 09:42 | C.PDOC ---
History Of Present Illness Tarik Lopez is a 42 year old male who presents to the ER complaining of persistent fluctuance in the right buttock/perianal area. He has had [address] Jeter for anal fistula, but he reports the area continues to be painful and fluctuant. Seen by Dr. Jeter for follow up 2 weeks ago and it was explained to him that his wounds are still healing. Pt is requesting follow up with a different surgeon. Time Seen by Provider: 07/21/17 09:31 Chief Complaint (Nursing): Abnormal Skin Integrity History Per: Patient History/Exam Limitations: no limitations Onset/Duration Of Symptoms: Persistent Current Symptoms Are (Timing): Still Present Location Of Injury: Right: Buttock Quality Of Symptoms: Painful, Swollen Past Medical History Reviewed: Historical Data, Nursing Documentation, Vital Signs Vital Signs: Last Vital Signs Temp 98.2 F 07/21/17 08:55 Pulse 85 07/21/17 08:55 Resp 20 07/21/17 08:55 BP 124/84 07/21/17 08:55 Pulse Ox 99 07/21/17 13:30 - Medical History PMH: No Chronic Diseases Denies: Chronic Kidney Disease - [facility] Procedures DIVISION OF ANAL SPHINCTER, OPEN APPROACH (05/09/17) DRAINAGE OF ANUS, OPEN APPROACH (02/20/17) DRAINAGE OF RECTUM, OPEN APPROACH (02/20/17) EXCISION OF ANUS, OPEN APPROACH (02/20/17) Family History: States: Unknown Family Hx - Social History Hx Alcohol Use: No Hx Substance Use: No - Immunization History Hx Tetanus Toxoid Vaccination: No Hx Influenza Vaccination: No Hx Pneumococcal Vaccination: No Review Of Systems Except As Marked, All Systems Reviewed And Found Negative. Constitutional: Negative for: Fever, Chills Skin: Positive for: Other (swelling to right buttocks/perianal region) Physical Exam - Physical Exam Appears: Well, Non-toxic, No Acute Distress Skin: Normal Color, Warm, Dry Head: Atraumatic, Normacephalic Eye(s): bilateral: Normal Inspection, PERRL, EOMI Oral Mucosa: Moist Neck: Normal, Supple Cardiovascular: Rhythm Regular Respiratory: Normal Breath Sounds, No Accessory Muscle Use Gastrointestinal/Abdominal: Normal Exam, Soft, No Tenderness Rectal: Other (4 x 2 area to right medial buttocks and perianal region with soft fluctuance, non-tender, no surrounding erythema. Questionably consistent w / persistent anal fistula. No anal hemorrhoids. No fluid discharge in the anus.) Neurological/Psych: Oriented x3, Normal Speech ED Course And Treatment O2 Sat by Pulse Oximetry: 99 (RA) Pulse Ox Interpretation: Normal Medical Decision Making Medical Decision Making: Impression: dry skin, now applying moisturizers no suspicious lesions no insect infestation LOW prob of bed bugs. Persistent small perianal fluctuance at right side, s/p [address] operations with Dr[address] Jeter, pt not satisfied with his tx and seeks re-eval with other surgeon. No acute issues today. Given benadryl in the ER. Disposition Doctor Will See Patient In The: Office Counseled Patient/Family Regarding: Studies Performed, Diagnosis - Disposition Referrals: [facility] [Outside] [facility] [Outside] Kenrick Cabrera MD [Staff Provider] - Disposition: HOME/ ROUTINE Disposition Time: 09:41 Condition: GOOD Additional Instructions: sigue inguentos humectantes NO hay infecciones en severino piel Benadryl 25-50 mg cada 6 horas campbell necessario para el picason. Sigue con Dr. Douglas- [facility]- para seguir jose evaluaciones de la fistula anal. Instructions: Lanolin (On the skin), Anorectal Abscess and Anal Fistula (ED) Forms: [employer]ique[employer]It ([place]) Print Language: MALIAN - Clinical Impression Clinical Impression: Skin irritation, Anal fistula - Scribe Statement The provider has reviewed the documentation as recorded by the Anthonyibcliff Cruz (Nicole Morgan)ibe Attestation: All medical record entries made by the Anthonyibe were at my direction and personally dictated by me. I have reviewed the chart and agree that the record accurately reflects my personal performance of the history, physical exam, medical decision making, and the department course for this patient. I have also personally directed, reviewed, and agree with the discharge instructions and disposition.
== END 2017-07-21 09:52 | disposition home or self-care (01) ==
LOC: C.ER 08:38
DX: K60.3 Anal fistula (principal); L98.9 Disorder of the skin and subcutaneous tissue, unspecified

== ENCOUNTER 2017-08-09 09:33 | Inpatient (IN) | payer OTHER ==
[2017-08-09 09:39] VITALS: BMI 30.6
[2017-08-09 10:04] LABS: BASO % 0.5 % (0.0-2.0); EOS # 0.1 K/uL (0.0-0.7); EOS % 1.6 % (0.0-4.0); HEMOGLOBIN 15.1 g/dL (12.0-18.0); LYMPH # 2.3 K/uL (1.0-4.3); LYMPH % 32.5 % (20.0-40.0); MEAN CELL VOLUME 93.1 fL (80.0-94.0); MEAN CORPUSCULAR HGB CONC 34.4 g/dL (33.0-37.0); MEAN PLATELET VOLUME 7.7 fL (7.2-11.7); MONO # 0.4 K/uL (0.0-0.8); MONO % 5.5 % (0.0-10.0); NEUT # 4.2 K/uL (1.8-7.0); NEUT % 59.9 % (50.0-75.0); NRBC % 0.1 % (0.0-2.0); RBC 4.72 Mil/uL (4.40-5.90); RED CELL DISTRIBUTION WIDTH 13.5 % (11.5-14.5)
[2017-08-09 10:11] LABS: INR 1.1
[2017-08-09 10:18] LABS: ALB/GLOB RATIO 1.3 (1.0-2.1); ALBUMIN 4.4 g/dL (3.5-5.0); ALT/SGPT 37 U/L (21-72); AST/SGOT 23 U/L (17-59); BLOOD UREA NITROGEN 11 mg/dL (9-20); CALCIUM 8.4 mg/dl (8.6-10.4); GFR AFRICAN-AMERICAN > 60; GFR NON-AFRICAN AMERICAN > 60
--- NOTE | 2017-08-09 10:24 | RAD ---
HISTORY: pre-op COMPARISON: Chest x-ray performed 05/09/17 TECHNIQUE: Chest PA and lateral FINDINGS: Examination limited by habitus. LUNGS: No focal consolidation. 10 x 10 mm nodular structure noted at the right lower chest between the 8th and 9th posterior ribs, possibly due to confluence of shadows however nodule cannot be excluded. Please note that chest x-ray has limited sensitivity for the detection of pulmonary masses. PLEURA: No significant pleural effusion identified. No definite pneumothorax . CARDIOVASCULAR: The cardiomediastinal silhouette appears within normal limits of size. OSSEOUS STRUCTURES: No acute osseous abnormality identified. VISUALIZED UPPER ABDOMEN: Unremarkable. OTHER FINDINGS: None. IMPRESSION: 10 x 10 mm nodular structure noted at the right lower chest between the 8th and 9th posterior ribs, possibly due to confluence of shadows however nodule cannot be excluded. CT of the chest may be considered if indicated.
--- NOTE | 2017-08-09 11:22 | C.PDOC ---
History Of Present Illness 42 year old male presents to the ED for evaluation after undergoing rectal fistula repair twice by Dr. Jeter. Patient states he developed pain to the area and was advised by Dr. Yang to present to the ED for further evaluation. Patient denies fever, chills. Time Seen by Provider: 08/09/17 09:55 Chief Complaint (Nursing): Abnormal Skin Integrity History Per: Patient History/Exam Limitations: no limitations Onset/Duration Of Symptoms: Days Current Symptoms Are (Timing): Still Present Quality Of Symptoms: Painful Additional History Per: Patient Past Medical History Reviewed: Historical Data, Nursing Documentation, Vital Signs Vital Signs: Last Vital Signs Temp 98.0 F 08/09/17 10:53 Pulse 63 08/09/17 10:53 Resp 20 08/09/17 10:53 BP 110/72 08/09/17 10:53 Pulse Ox 99 08/09/17 13:11 - Medical History PMH: No Chronic Diseases Denies: Chronic Kidney Disease Surgical History: No Surg Hx - [facility] Procedures DIVISION OF ANAL SPHINCTER, OPEN APPROACH (05/09/17) DRAINAGE OF ANUS, OPEN APPROACH (02/20/17) DRAINAGE OF RECTUM, OPEN APPROACH (02/20/17) EXCISION OF ANUS, OPEN APPROACH (02/20/17) Family History: States: Unknown Family Hx - Social History Hx Alcohol Use: No Hx Substance Use: No - Immunization History Hx Tetanus Toxoid Vaccination: No Hx Influenza Vaccination: No Hx Pneumococcal Vaccination: No Review Of Systems Constitutional: Negative for: Fever, Chills Skin: Positive for: Other (pain s/p rectal fistula operation ) Physical Exam - Physical Exam Appears: Non-toxic, No Acute Distress Skin: Normal Color, Warm, Dry Oral Mucosa: Moist Neck: Supple Chest: Symmetrical, No Deformity, No Tenderness Cardiovascular: Rhythm Regular, No Murmur Respiratory: Normal Breath Sounds, No Rales, No Rhonchi, No Wheezing Gastrointestinal/Abdominal: Soft, No Tenderness, No Guarding, No Rebound Rectal: Other (deferred to Dr. Jeter) Extremity: Normal ROM, Capillary Refill (less than 2 seconds ) Neurological/Psych: Oriented x3, Normal Speech, Normal Cognition Gait: Steady ED Course And Treatment - Laboratory Results Result Diagrams: 08/09/17 09:59 08/09/17 09:59 ECG: Interpreted By Me, Viewed By Me ECG Rhythm: Sinus Rhythm Interpretation Of ECG: Normal Sinys Rhythm with rate 70bpm. Nonspecific T waves noted. Rate From EC O2 Sat by Pulse Oximetry: 99 (on RA) Pulse Ox Interpretation: Normal - Other Rad CXR X-Ray: Interpreted by Me, Viewed By Me, Read By Radiologist Interpretation: HISTORY: pre-op. COMPARISON: Chest x-ray performed 05/09/17. TECHNIQUE: Chest PA and lateral. FINDINGS: Examination limited by habitus. LUNGS: No focal consolidation. 10 x 10 mm nodular structure noted at the right lower chest between the 8th and 9th posterior ribs, possibly due to confluence of shadows however nodule cannot be excluded. Please note that chest x-ray has limited sensitivity for the detection of pulmonary masses. PLEURA: No significant pleural effusion identified. No definite pneumothorax . CARDIOVASCULAR: The cardiomediastinal silhouette appears within normal limits of size. OSSEOUS STRUCTURES: No acute osseous abnormality identified. VISUALIZED UPPER ABDOMEN: Unremarkable. OTHER FINDINGS: None. IMPRESSION: 10 x 10 mm nodular structure noted at the right lower chest between the 8th and 9th posterior ribs, possibly due to confluence of shadows however nodule cannot be excluded. CT of the chest may be considered if indicated. Progress Note: Bloodwork, CXR and EKG ordered and reviewed. Patient has been cleared for surgery. Disposition - Disposition Disposition: HOSPITALIZED Disposition Time: 11:31 Condition: STABLE - Clinical Impression Clinical Impression: Anal fistula Decision To Admit - Pt Status Changed To: Hospital Disposition Of: Inpatient - Admit Certification Admit to Inpatient:: After my assessment, the patient will require hospitalization for at least two midnights. This is because of the severity of symptoms shown, intensity of services needed, and/or the medical risk in this patient being treated as an outpatient. - InPatient: Physician Admission Certification: I certify that this patient requires 2 or more midnights of care for the following reason:: needs surgery - . Bed Request Type: Regular Admitting Physician: Jeff Jeter Patient Diagnosis: Anal fistula
[2017-08-09] MEDS ORDERED: Midazolam 2 MG/2 ML VIAL ONE ×2 (12:04→12:45)
[2017-08-09] MEDS ORDERED: Propofol 10 mg/ml Inj (20 ML) ONE ×2 (12:04→12:45)
[2017-08-09] MEDS ORDERED: Lactated Ringer's 1,000 ML IV ONE ×3 (12:35→14:30)
[2017-08-09] MEDS: ceFAZolin IV 2 gm in Dextrose 2 GM/50 ML BAG IVPB ONE ×2 (12:36→13:05)
[2017-08-09] MEDS ORDERED: Bupivacaine HCl 0.5% PF (10 ml) Inj ONE (13:24)
[2017-08-09] MEDS ORDERED: Bacitracin Ointment 30 GM TUBE ONE (13:26)
[2017-08-09] MEDS ORDERED: Oxycodone/Acetaminophen 5/325 mg Tab PO PRN (13:30)
[2017-08-09] MEDS ORDERED: Lactated Ringer's 1,000 ML IV SCH (14:00)
[2017-08-09 15:00] VITALS: O2SAT 100
[2017-08-09 16:43] VITALS: BP 132/76; PULSE 90; RESP 14; TEMP 97.8
--- NOTE | 2017-08-09 21:34 | OP ---
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 POSTOPERATIVE DIAGNOSIS: Suture granuloma of the rectal area. PROCEDURE PERFORMED: Excision suture granuloma of the rectal area. SURGEON: Jeff Jeter M.D. TYPE OF ANESTHESIA: General. ESTIMATED BLOOD LOSS: 50 mL. POSTOPERATIVE CONDITION: Stable. INDICATIONS FOR SURGERY: This is a 42-year-old male who underwent a fistulotomy x2 over the past year, re-presented with pain and tenderness over the distal aspect of the fistulotomy wound. It was felt he may have a new fistula and is admitted for exam under anesthesia. GROSS FINDINGS: Apparently, he had an infected tie. In the area of induration, there appeared to be some foreign body material consistent with suture granuloma; however, this was unclear. Once this was excised, a probe was used and very cautiously, the area was probed and no recurrent fistula could be found. It was felt the patient had a localized infection and was treated with wide excision with loose closure. DESCRIPTION OF PROCEDURE: The patient was taken to the operating room. General anesthesia was administered, placed in the lithotomy position. Rectal area was prepped and draped. An elliptical incision was made surrounding the indurated mass and it was completely excised and removed. Bleeding was controlled using the Bovie. A probe was then used to try and find a fistula in ano and none was found. The wound was closed in layers with Monocryl loosely. The patient tolerated the procedure well and returned to recovery room in stable condition. Jeff Jeter MD
--- NOTE | 2017-08-10 14:46 | CARD ---
APPROVED REPORT EKG Measurement Heart [id number] <Conclusion> Normal sinus rhythm Nonspecific T wave abnormality Abnormal ECG
--- NOTE | 2017-08-10 14:47 | CARD ---
APPROVED REPORT EKG Measurement Heart [id number] P8 [id number] <Conclusion> Sinus rhythm with baseline artifact ST & T wave abnormality, consider inferior ischemia Abnormal ECG
== END 2017-08-09 15:28 | disposition home or self-care (01) | DRG 442 ==
LOC: C.ER 09:33 → C.9E 11:30 → C.6T 13:18 → C.9S 15:09
PROVIDERS: ADMIT Surgery; ATTEND Surgery
PROC: 0D9P0ZZ Drainage of Rectum, Open Approach (ICD-10-PCS; principal; 2017-08-09 12:30)
DX: T81.89XA Other complications of procedures, not elsewhere classified, initial encounter (principal); K61.1 Rectal abscess; T81.4XXA Infection following a procedure, initial encounter; Y83.8 Other surgical procedures as the cause of abnormal reaction of the patient, or of later complication, without mention of misadventure at the time of the procedure

== ENCOUNTER 2017-10-10 08:56 | Emergency (ER) | payer OTHER ==
[2017-10-10 08:57] VITALS: BMI 30.6
[2017-10-10] MEDS ORDERED: Iohexol 240 (50 ml) PO STA (10:59)
[2017-10-10 11:26] LABS: BASO % 0.4 % (0.0-2.0); EOS # 0.1 K/uL (0.0-0.7); EOS % 1.3 % (0.0-4.0); HEMOGLOBIN 14.8 g/dL (12.0-18.0); LYMPH # 1.8 K/uL (1.0-4.3); LYMPH % 18.7 % (20.0-40.0); MEAN CELL VOLUME 91.4 fL (80.0-94.0); MEAN CORPUSCULAR HEMOGLOBIN 32.2 pg (27.0-31.0); MEAN CORPUSCULAR HGB CONC 35.2 g/dL (33.0-37.0); MEAN PLATELET VOLUME 7.3 fL (7.2-11.7); MONO # 0.5 K/uL (0.0-0.8); MONO % 5.1 % (0.0-10.0); NEUT % 74.5 % (50.0-75.0); RBC 4.59 Mil/uL (4.40-5.90); RED CELL DISTRIBUTION WIDTH 13.3 % (11.5-14.5); WHITE BLOOD COUNT 9.4 K/uL (4.8-10.8)
[2017-10-10] MEDS ORDERED: Iohexol 240 (50 ml) ONE (11:33)
--- NOTE | 2017-10-10 11:42 | C.PDOC ---
History Of Present Illness 42 year old male presents to the emergency department for evaluation of 1 week of rectal pain. Patient is s/p repair for rectal fissure x2 with Dr. Jeter. He describes having a persistent, pulsating sensation to the estefani-rectal area. Patient also has loose bowel movements. No abdominal pain or blood in the stool. Time Seen by Provider: 10/10/17 09:17 Chief Complaint (Nursing): GI Problem History Per: Patient History/Exam Limitations: no limitations Onset/Duration Of Symptoms: Days Current Symptoms Are (Timing): Still Present Past Medical History Reviewed: Historical Data, Nursing Documentation, Vital Signs Vital Signs: Last Vital Signs Temp 97.9 F 10/10/17 16:32 Pulse 84 10/10/17 16:32 Resp 16 10/10/17 16:32 BP 118/81 10/10/17 16:32 Pulse Ox 100 10/11/17 20:08 - Medical History PMH: Denies: Chronic Kidney Disease Other PMH: Anal fistula - [facility] Procedures DIVISION OF ANAL SPHINCTER, OPEN APPROACH (05/09/17) DRAINAGE OF ANUS, OPEN APPROACH (02/20/17) DRAINAGE OF RECTUM, OPEN APPROACH (08/09/17) EXCISION OF ANUS, OPEN APPROACH (02/20/17) Family History: States: Unknown Family Hx - Social History Hx Alcohol Use: No Hx Substance Use: No - Immunization History Hx Tetanus Toxoid Vaccination: No Hx Influenza Vaccination: No Hx Pneumococcal Vaccination: No Review Of Systems Constitutional: Negative for: Fever Gastrointestinal: Positive for: Diarrhea (loose bowel movements), Rectal Pain ( with pulsating sensation). Negative for: Abdominal Pain, Hematochezia Physical Exam - Physical Exam Appears: Non-toxic, No Acute Distress Skin: Warm, Dry, No Rash Head: Atraumatic, Normacephalic Eye(s): bilateral: PERRL, EOMI Oral Mucosa: Moist Neck: Supple Chest: No Tenderness Cardiovascular: Rhythm Regular, No Murmur Respiratory: No Rales, No Rhonchi, No Wheezing, Other (Clear to auscultation bilaterally) Gastrointestinal/Abdominal: Soft, No Tenderness, No Distention, No Guarding Rectal: No Hemorrhoids, Tenderness (to the lateral right buttock, ~1 inch lateral to anus, wiht no swelling, erythwema, induration or fluctuance), No Other (redness, swelling, or warmth) Back: No CVA Tenderness Extremity: No Calf Tenderness, No Swelling Neurological/Psych: Oriented x3, Normal Speech, Normal Cognition, No Other ( gross focal deficit) ED Course And Treatment - Laboratory Results Result Diagrams: 10/10/17 11:20 10/10/17 11:20 O2 Sat by Pulse Oximetry: 100 (RA) Pulse Ox Interpretation: Normal - CT Scan/US CT abd/pelvis Other Rad Studies (CT/US): Read By Radiologist, Radiology Report Reviewed CT/US Interpretation: FINDINGS: LOWER THORAX: No visible consolidation, pleural effusion, or pneumothorax. LIVER: Unremarkable. GALLBLADDER AND BILE DUCTS: Unremarkable. PANCREAS: Unremarkable. SPLEEN: Unremarkable. ADRENALS: Unremarkable. KIDNEYS AND URETERS: The kidneys enhance symmetrically. No hydronephrosis or obstructing renal calculus. Too small characterize 9 mm left renal hypodensity, statistically likely cysts. BLADDER: Re-identified nodular calcification, urinary bladder dome. REPRODUCTIVE: The prostate gland measures approximately 4.0 x 4.6 cm. APPENDIX: The appendix appears within normal limits of caliber. No secondary signs of acute appendicitis. BOWEL: Gastric wall thickening may be exaggerated by under distension of the stomach. The bowel loops appear within normal limits of caliber without evidence of intestinal obstruction. Mild wall thickening of the left/rectosigmoid colon ; correlate clinically for possibility of colitis. Re- identified at the level the right superior aspect of the anal rectal complex is a soft tissue density, possibly scarring. PERITONEUM: No significant free fluid. No definite free air. LYMPH NODES: No bulky lymphadenopathy identified. VASCULATURE: No aortic aneurysm. BONES: No acute osseous abnormality is detected. OTHER FINDINGS: None. IMPRESSION: Mild wall thickening of the left/rectosigmoid colon ; correlate clinically for possibility of colitis. Re-identified at the level the right superior aspect of the anal rectal complex is a soft tissue density, possibly scarring. Gastric wall thickening may be exaggerated by under distension of the stomach. Correlate clinically. Too small to characterize 9 mm left renal hypodensity, statistically likely a cyst. Borderline enlarged prostate gland. Recommend correlation with PSA. Additional findings as above. Medical Decision Making Medical Decision Makin am Spoke to Dr. Jeter, who is requesting labs and CT abd/pelvis Time: 10:59 Plan: * CMP * CBC * Toradol 30 mg IM * CT Abd/Pelvis with PO & IV contrast [address] results discussed with Dr Jeter; requests nsaids for patient, f/u in office next week. pt with ? mild colitis on ct scan, has no abdominal pain, no fever, has diarrhea for last week. will d/c pt home with suggested diet for diarrhea, rx for naproxen and f/u with Dr Jeter Disposition Discussed With Dr.: Jeff Jeter Doctor Will See Patient In The: Office - Disposition Referrals: Jeff Jeter MD [Staff Provider] - Disposition: HOME/ ROUTINE Disposition Time: 15:51 Condition: GOOD Additional Instructions: [place] naproxeno (con comida) cada 12 horas para el dolor. Adriana un seguimiento con el Dr. Jeetr la prxima semana: llame para programar maulik qouc. Evite los alimentos con alto contenido de fibra hasta que desaparezca la diarrea. Coma pl kristen, arroz barber, mirian ms lquidos. Prescriptions: Naproxen 500 mg PO BID #20 ect Forms: Gen Discharge Inst Vietnamese, Melboss (Vietnamese) Print Language: NORTHERN IRISH - Clinical Impression Clinical Impression: Rectal or anal pain - PA / CLINICAL SPECIALIST / Resident Statement MD/DO has reviewed & agrees with the documentation as recorded. - Scribe Statement The provider has reviewed the documentation as recorded by the Scribe (Kayla Carcamo) All medical record entries made by the Scribe were at my direction and personally dictated by me. I have reviewed the chart and agree that the record accurately reflects my personal performance of the history, physical exam, medical decision making, and the department course for this patient. I have also personally directed, reviewed, and agree with the discharge instructions and disposition.
[2017-10-10 11:48] LABS: ALT/SGPT 36 U/L (21-72); AST/SGOT 23 U/L (17-59); BLOOD UREA NITROGEN 11 mg/dL (9-20); CALCIUM 8.8 mg/dl (8.6-10.4); GFR AFRICAN-AMERICAN > 60; GFR NON-AFRICAN AMERICAN > 60
[2017-10-10 11:57] LABS: ALB/GLOB RATIO 1.2 (1.0-2.1); ALBUMIN 4.1 g/dL (3.5-5.0)
[2017-10-10] MEDS ORDERED: Iodixanol 320 MG/ML 100 ML BOTTLE IV ONE (14:15)
--- NOTE | 2017-10-10 15:33 | CT ---
PROCEDURE: CT Abdomen and Pelvis with oral and IV contrast. HISTORY: rectal pain s/p fissure repair COMPARISON: Abdominal ultrasound performed 06/13/17 TECHNIQUE: Contiguous axial images of the abdomen and pelvis. Oral and IV contrast was administered. Coronal and Sagittal reformats generated and reviewed. Contrast dose: 100 mL Visipaque IV Radiation dose: Total exam DLP = 516.55 mGy-cm. This CT exam was performed using one or more of the following dose reduction techniques: Automated exposure control, adjustment of the mA and/or kV according to patient size, and/or use of iterative reconstruction technique. FINDINGS: LOWER THORAX: No visible consolidation, pleural effusion, or pneumothorax. LIVER: Unremarkable. GALLBLADDER AND BILE DUCTS: Unremarkable. PANCREAS: Unremarkable. SPLEEN: Unremarkable. ADRENALS: Unremarkable. KIDNEYS AND URETERS: The kidneys enhance symmetrically. No hydronephrosis or obstructing renal calculus. Too small characterize 9 mm left renal hypodensity, statistically likely cysts. BLADDER: Re-identified nodular calcification, urinary bladder dome. REPRODUCTIVE: The prostate gland measures approximately 4.0 x 4.6 cm. APPENDIX: The appendix appears within normal limits of caliber. No secondary signs of acute appendicitis. BOWEL: Gastric wall thickening may be exaggerated by under distension of the stomach. The bowel loops appear within normal limits of caliber without evidence of intestinal obstruction. Mild wall thickening of the left/rectosigmoid colon ; correlate clinically for possibility of colitis. Re-identified at the level the right superior aspect of the anal rectal complex is a soft tissue density, possibly scarring. PERITONEUM: No significant free fluid. No definite free air. LYMPH NODES: No bulky lymphadenopathy identified. VASCULATURE: No aortic aneurysm. BONES: No acute osseous abnormality is detected. OTHER FINDINGS: None. IMPRESSION: Mild wall thickening of the left/rectosigmoid colon ; correlate clinically for possibility of colitis. Re-identified at the level the right superior aspect of the anal rectal complex is a soft tissue density, possibly scarring. Gastric wall thickening may be exaggerated by under distension of the stomach. Correlate clinically. Too small to characterize 9 mm left renal hypodensity, statistically likely a cyst. Borderline enlarged prostate gland. Recommend correlation with PSA. Additional findings as above.
[2017-10-10 16:32] VITALS: BP 118/81; PULSE 84; RESP 16; TEMP 97.9
[2017-10-10 16:40] VITALS: O2SAT 100
== END 2017-10-10 16:33 | disposition home or self-care (01) ==
LOC: C.ER 08:56
DX: K62.89 Other specified diseases of anus and rectum (principal)
CPT/HCPCS: 74177; 80053; 85025; 96372; 99285; J1885; Q9966; Q9967

== ENCOUNTER 2017-10-18 10:05 | Day surgery (SDC) | payer OTHER ==
[2017-10-18] MEDS ORDERED: Propofol 10 mg/ml Inj (20 ML) ONE (14:50)
[2017-10-18] MEDS ORDERED: Midazolam 2 MG/2 ML VIAL ONE (14:50)
[2017-10-18] MEDS ORDERED: ceFAZolin IV 1 gm in Dextrose 1 GM/50 ML BAG IVPB ONE (14:53)
[2017-10-18] MEDS ORDERED: Rocuronium 10 mg/ml (5 ml) ONE (14:57)
[2017-10-18] MEDS ORDERED: Succinylcholine Chloride 20 mg/ml Syr (5 ml) IV ONE (15:08)
[2017-10-18] MEDS ORDERED: Absorbable Gelatin Sponge Size 12-7 ONE ×3 (15:38→15:44)
[2017-10-18] MEDS ORDERED: Bupivacaine HCl 0.5% PF (10 ml) Inj ONE (15:42)
[2017-10-18 15:54] VITALS: BMI 27.4
[2017-10-18] MEDS ORDERED: Oxycodone/Acetaminophen 5/325 mg Tab PO PRN (15:55)
[2017-10-18] MEDS ORDERED: Lactated Ringer's 1,000 ML IV ONE (15:57)
[2017-10-18] MEDS ORDERED: Psyllium Packet PO STA (16:00)
[2017-10-18] MEDS: HYDROmorphone 0.5 mg/0.5 ml ISec IVP PRN ×2 (16:17→16:33)
[2017-10-18 17:09] VITALS: RESP 18
[2017-10-18 18:03] VITALS: BP 117/62; PULSE 70; TEMP 97; O2SAT 100
--- NOTE | 2017-10-19 01:38 | OP ---
PROCEDURE DATE: 10/18/2017 PREOPERATIVE DIAGNOSIS: Rectal bleeding. POSTOPERATIVE DIAGNOSES: Rectal bleeding secondary to hemorrhoids and rectal polyp. PROCEDURE PERFORMED: 1. Proctosigmoidoscopy. 2. Hemorrhoidectomy. 3. Transanal excision of rectal polyp. SURGEON: Jeff Jeter MD ANESTHESIA: General. BLOOD LOSS: 50 mL. POSTOPERATIVE CONDITION: Stable. INDICATIONS FOR SURGERY: This is 42-year-old male, status post two separate fistulotomies of a problematic area of his rectum, approximately 6 months ago, patient recently developed rectal bleeding, and he is now brought into the operating room for examination under anesthesia and surgical intervention. GROSS FINDINGS: There was a large internal hemorrhoid at the right anterior position which appeared to be the source of bleeding. There was also a rectal polyp noted, two fingerbreadths above the dentate line. Hemorrhoidectomy was performed as well as a transanal polypectomy. DESCRIPTION OF PROCEDURE: The patient taken to the operating room and general anesthesia was administered, placed in the prone position with the buttocks taped open. Proctosigmoidoscopy is carried out to 15 cm with no abnormal findings. Anoscopy was then carried out with the above findings. Next, the hemorrhoid was grasped with a katherine clamp, ligated at its base with heavy Monocryl and a generous elliptical incision was made. Flaps were raised after the hemorrhoid was excised. The tissue was reapproximated with a running heavy Monocryl suture until it was hemostatic. The polyp was grasped again using a katherine clamp, and the base of the polyp was transected full-thickness. Mucosa was repaired with Monocryl. The wound was hemostatic. An anal block was placed at the completion of procedure. The patient tolerated the procedure well. Returned to recovery room in stable condition. Jeff Jeter MD
== END 2017-10-18 18:05 | disposition home or self-care (01) ==
LOC: C.SDS 10:05
PROVIDERS: ATTEND Surgery
DX: K62.1 Rectal polyp (principal); K62.5 Hemorrhage of anus and rectum; K64.8 Other hemorrhoids
CPT/HCPCS: 45330; 46260; 88305; J0690; J1170; J2250; J2405; J2704; J3010; J7120

== ENCOUNTER 2017-11-29 09:37 | Day surgery (SDC) | payer OTHER ==
[2017-11-29 09:53] VITALS: BMI 31.5
[2017-11-29] MEDS ORDERED: Sodium Chloride 0.9% 1,000 ML IV ONE (10:08)
--- NOTE | 2017-11-29 10:28 | C.PDOC ---
History Of Present Illness 42-year-old male presents to the emergency department, referred by Dr Jeter for same day surgery. Patient with right buttock abscess x3 months. He is NPO since last night. No fever. Time Seen by Provider: 11/29/17 10:06 Chief Complaint (Nursing): Abnormal Skin Integrity History Per: Patient History/Exam Limitations: no limitations Past Medical History Reviewed: Historical Data, Nursing Documentation, Vital Signs Vital Signs: Last Vital Signs Temp 98.7 F 11/29/17 14:12 Pulse 81 11/29/17 14:12 Resp 18 11/29/17 14:12 BP 112/73 11/29/17 14:12 Pulse Ox 99 11/29/17 14:38 - Medical History PMH: - [facility] Procedures DIVISION OF ANAL SPHINCTER, OPEN APPROACH (05/09/17) DRAINAGE OF ANUS, OPEN APPROACH (02/20/17) DRAINAGE OF RECTUM, OPEN APPROACH (08/09/17) EXCISION OF ANUS, OPEN APPROACH (02/20/17) Family History: States: No Known Family Hx - Social History Hx Alcohol Use: No Hx Substance Use: No - Immunization History Hx Tetanus Toxoid Vaccination: No Hx Influenza Vaccination: No Hx Pneumococcal Vaccination: No Review Of Systems Constitutional: Negative for: Fever Gastrointestinal: Negative for: Vomiting Skin: Positive for: Other (abscess r buttock). Negative for: Rash Neurological: Negative for: Weakness Physical Exam - Physical Exam Appears: Non-toxic, No Acute Distress Skin: Normal Color, Warm, Dry, No Rash Head: Normacephalic Eye(s): bilateral: PERRL Neck: Normal ROM Cardiovascular: Rhythm Regular, No Murmur Respiratory: Normal Breath Sounds, No Accessory Muscle Use Rectal: Other (abscess r buttock) Extremity: Normal ROM, No Deformity, No Swelling Neurological/Psych: Oriented x3, Normal Speech ED Course And Treatment - Laboratory Results Result Diagrams: 11/29/17 10:38 11/29/17 10:38 O2 Sat by Pulse Oximetry: 99 (RA) Pulse Ox Interpretation: Normal Disposition Counseled Patient/Family Regarding: Diagnosis, Need For Followup - Disposition Disposition: HOSPITALIZED Disposition Time: 10:27 Condition: SERIOUS - POA Present On Arrival: None - Clinical Impression Clinical Impression: Abscess - Scribe Statement The provider has reviewed the documentation as recorded by the Scribe (Jimmy Rosas) All medical record entries made by the Scribe were at my direction and personally dictated by me. I have reviewed the chart and agree that the record accurately reflects my personal performance of the history, physical exam, medical decision making, and the department course for this patient. I have also personally directed, reviewed, and agree with the discharge instructions and disposition. Decision To Admit - Pt Status Changed To: Hospital Disposition Of: SDS- Endo,OR,Cath,IR - . Bed Request Type: Same Day Surgery Admitting Physician: Jeff Jeter Patient Diagnosis: Abscess
[2017-11-29 10:45] LABS: BASO % 0.6 % (0.0-2.0); EOS # 0.1 K/uL (0.0-0.7); EOS % 1.3 % (0.0-4.0); HEMOGLOBIN 15.4 g/dL (12.0-18.0); LYMPH # 1.8 K/uL (1.0-4.3); MEAN CELL VOLUME 92.8 fL (80.0-94.0); MEAN CORPUSCULAR HEMOGLOBIN 31.6 pg (27.0-31.0); MEAN CORPUSCULAR HGB CONC 34.1 g/dL (33.0-37.0); MEAN PLATELET VOLUME 7.6 fL (7.2-11.7); MONO # 0.4 K/uL (0.0-0.8); MONO % 5.6 % (0.0-10.0); NEUT # 4.5 K/uL (1.8-7.0); NEUT % 66.5 % (50.0-75.0); RBC 4.88 Mil/uL (4.40-5.90); RED CELL DISTRIBUTION WIDTH 13.6 % (11.5-14.5); WHITE BLOOD COUNT 6.8 K/uL (4.8-10.8)
[2017-11-29 10:56] LABS: PROTHROMBIN TIME 11.1 SECONDS (9.7-12.2)
[2017-11-29 10:57] LABS: BLOOD UREA NITROGEN 14 mg/dL (9-20); CALCIUM 9.1 mg/dl (8.6-10.4); GFR AFRICAN-AMERICAN > 60; GFR NON-AFRICAN AMERICAN > 60
[2017-11-29] MEDS ORDERED: Sodium Chloride 0.9% 1,000 ML ONE (11:04)
[2017-11-29 11:10] LABS: URINE BILIRUBIN NEGATIVE (NEGATIVE); URINE BLOOD NEGATIVE (NEGATIVE); URINE CLARITY Clear (Clear); URINE COLOR Yellow (YELLOW); URINE GLUCOSE (UA) NORMAL (Normal); URINE LEUKOCYTE ESTERASE NEG Leu/uL (Negative); URINE PROTEIN NEGATIVE (NEGATIVE); URINE UROBILINOGEN NORMAL mg/dL (0.2-1.0)
[2017-11-29] MEDS ORDERED: Bupivacaine HCl 0.25% PF (30 ml) Inj ONE (14:48)
[2017-11-29] MEDS ORDERED: ceFAZolin 1 gm in NS 0 GM/0 ML BAG IVPB ONE (14:48)
[2017-11-29] MEDS ORDERED: Midazolam 2 MG/2 ML VIAL ONE (14:56)
[2017-11-29] MEDS ORDERED: Propofol 10 mg/ml Inj (20 ML) ONE (14:57)
[2017-11-29] MEDS ORDERED: ceFAZolin 1 gm in NS 1 GM/100 ML BAG IVPB ONE (15:02)
[2017-11-29] MEDS ORDERED: Oxycodone/Acetaminophen 5/325 mg Tab PO PRN (15:32)
[2017-11-29] MEDS ORDERED: HYDROmorphone 0.5 mg/0.5 ml ISec IVP PRN (15:34)
[2017-11-29] MEDS ORDERED: Lactated Ringer's 1,000 ML IV SCH (15:45)
[2017-11-29 17:37] VITALS: BP 112/70; PULSE 63; RESP 18; TEMP 97.4; O2SAT 100
--- NOTE | 2017-11-30 01:29 | OP ---
PROCEDURE DATE: 11/29/2017. PREOPERATIVE DIAGNOSIS: Recurrent rectal abscess with fistula. POSTOPERATIVE DIAGNOSIS: Recurrent rectal abscess with fistula. PROCEDURE PERFORMED: Incision and drainage rectal abscess with fistula. SURGEON: Jeff Jeter MD. TYPE OF ANESTHESIA: General. ESTIMATED BLOOD LOSS: 20 mL. POSTOPERATIVE CONDITION: Stable. INDICATIONS FOR SURGERY: This is 42-year-old male, status post a fistulotomy along with hemorrhoidectomy, who presents with recurrent infection in his rectal area for re-drainage in the operating room. GROSS FINDINGS: There was a new abscess located at the 9'o clock level of the anus, connected to small intersphincteric fistula. PROCEDURE: The patient was taken to the operating room and general anesthesia was administered. The patient was placed in lithotomy position, rectal area was prepped and draped. An incision was made into the abscess cavity and cultures were taken. A probe was easily passed into the anus directly and the overlying tissue was divided. The wound was irrigated with the saline. Bleeding was controlled using Bovie and packed open using iodoform. The patient tolerated the procedure well, returned to recovery room in stable condition. Jeff Jeter MD
--- NOTE | 2017-12-01 13:25 | CARD ---
APPROVED REPORT EKG Measurement Heart [id number] NC [id number] [id number] <Conclusion> Normal sinus rhythm Normal ECG
== END 2017-11-29 17:39 | disposition home or self-care (01) ==
LOC: C.ER 09:37 → C.SDS 09:37
PROVIDERS: ATTEND Surgery
DX: K61.1 Rectal abscess (principal)
CPT/HCPCS: 36415; 46045; 80048; 81001; 82948; 85025; 85610; 85730; 86850; 86900; 96360; 99285; J0690; J1170; J2250; J2704; J2765; J3010; J7040

== ENCOUNTER 2018-02-23 07:04 | Day surgery (SDC) | payer OTHER ==
[2018-02-23 07:34] VITALS: O2SAT 100
[2018-02-23] MEDS ORDERED: Lactated Ringer's 500 ML IV ONE ×3 (08:50→10:00)
[2018-02-23] MEDS ORDERED: Propofol 10 mg/ml Inj (20 ML) ONE (09:25)
[2018-02-23 10:35] VITALS: TEMP 98.4
[2018-02-23 11:05] VITALS: RESP 12
[2018-02-23 11:20] VITALS: BP 110/70; PULSE 64
== END 2018-02-23 11:20 | disposition home or self-care (01) ==
LOC: C.ENDO 07:04
PROVIDERS: ATTEND Internal Medicine Gastroenterology
DX: K62.5 Hemorrhage of anus and rectum (principal); R19.7 Diarrhea, unspecified; K57.30 Diverticulosis of large intestine without perforation or abscess without bleeding; D12.0 Benign neoplasm of cecum; K62.6 Ulcer of anus and rectum; R12 Heartburn; K25.9 Gastric ulcer, unspecified as acute or chronic, without hemorrhage or perforation
CPT/HCPCS: 43239; 45380; 88305; J2001; J2704; J7120

== ENCOUNTER 2018-03-20 10:48 | Emergency (ER) | payer OTHER ==
[2018-03-20 10:48] VITALS: BMI 31.5
[2018-03-20 11:00] VITALS: O2SAT 98
--- NOTE | 2018-03-20 11:41 | C.PDOC ---
History Of Present Illness 42 y/o male presents to ED with c/o intermittent periumblical pain for 1 week associated with swelling to area. Patient reports pain is worse when walking and currently states pain resolved. Patient denies fever, chills, nausea, vomiting, diarrhea or any other complaints at this time. Time Seen by Provider: 03/20/18 11:18 Chief Complaint (Nursing): Abdominal Pain History Per: Patient History/Exam Limitations: no limitations Onset/Duration Of Symptoms: Days, Intermittent Episodes Current Symptoms Are (Timing): Still Present Location Of Pain/Discomfort: Periumbilical Past Medical History Reviewed: Historical Data, Nursing Documentation, Vital Signs Vital Signs: Last Vital Signs Temp 98.5 F 03/20/18 10:58 Pulse 85 03/20/18 10:58 Resp 16 03/20/18 10:58 BP 134/82 03/20/18 10:58 Pulse Ox 98 03/20/18 12:44 - Medical History PMH: No Chronic Diseases Surgical History: Endoscopy - [facility] Procedures DIVISION OF ANAL SPHINCTER, OPEN APPROACH (05/09/17) DRAINAGE OF ANUS, OPEN APPROACH (02/20/17) DRAINAGE OF RECTUM, OPEN APPROACH (08/09/17) EXCISION OF ANUS, OPEN APPROACH (02/20/17) Family History: States: No Known Family Hx - Social History Hx Alcohol Use: No Hx Substance Use: No - Immunization History Hx Tetanus Toxoid Vaccination: No Hx Influenza Vaccination: No Hx Pneumococcal Vaccination: No Review Of Systems Constitutional: Negative for: Fever, Chills Gastrointestinal: Positive for: Abdominal Pain. Negative for: Nausea, Vomiting , Diarrhea Physical Exam - Physical Exam Appears: Non-toxic, No Acute Distress Skin: Warm, Dry, No Rash Head: Atraumatic, Normacephalic Eye(s): bilateral: Normal Inspection Oral Mucosa: Moist Neck: Supple Cardiovascular: Rhythm Regular Respiratory: Normal Breath Sounds, No Rales, No Rhonchi, No Wheezing Gastrointestinal/Abdominal: Soft, No Tenderness, No Guarding, No Rebound, No Hernia Back: No CVA Tenderness Extremity: Normal ROM, Capillary Refill (<2 seconds) Neurological/Psych: Oriented x3, Normal Speech, Normal Cognition ED Course And Treatment - Laboratory Results Result Diagrams: 03/20/18 12:27 03/20/18 12:27 O2 Sat by Pulse Oximetry: 98 (RA) Pulse Ox Interpretation: Normal - Radiology CXR: Interpreted by Me, Viewed By Me CXR Interpretation: Yes: No Acute Disease Reevaluation Time: 15:44 Reassessment Condition: Improved Disposition Counseled Patient/Family Regarding: Studies Performed, Diagnosis, Need For Followup - Disposition Referrals: YOUR,PMD [Other] Disposition: HOME/ ROUTINE Disposition Time: 15:51 Condition: IMPROVED Instructions: Acute Abdomen (Belly Pain), Adult (DC) Forms: [facility] (Albanian), Work Excuse - Clinical Impression Clinical Impression: Abdominal pain - Scribe Statement The provider has reviewed the documentation as recorded by the Scribcliff Crooks All medical record entries made by the Anthonyibcliff were at my direction and personally dictated by me. I have reviewed the chart and agree that the record accurately reflects my personal performance of the history, physical exam, medical decision making, and the department course for this patient. I have also personally directed, reviewed, and agree with the discharge instructions and disposition.
[2018-03-20] MEDS ORDERED: Iohexol 240 (50 ml) PO STA (11:44)
[2018-03-20] MEDS ORDERED: Iohexol 240 (50 ml) ONE (12:29)
[2018-03-20 12:31] LABS: BASO % 0.6 % (0.0-2.0); EOS # 0.1 K/uL (0.0-0.7); EOS % 1.4 % (0.0-4.0); HEMOGLOBIN 14.7 g/dL (12.0-18.0); LYMPH # 1.5 K/uL (1.0-4.3); LYMPH % 26.8 % (20.0-40.0); MEAN CORPUSCULAR HEMOGLOBIN 31.5 pg (27.0-31.0); MEAN CORPUSCULAR HGB CONC 34.3 g/dL (33.0-37.0); MEAN PLATELET VOLUME 7.4 fL (7.2-11.7); MONO # 0.4 K/uL (0.0-0.8); MONO % 6.8 % (0.0-10.0); NEUT # 3.7 K/uL (1.8-7.0); NEUT % 64.4 % (50.0-75.0); RBC 4.67 Mil/uL (4.40-5.90); RED CELL DISTRIBUTION WIDTH 13.1 % (11.5-14.5); WHITE BLOOD COUNT 5.7 K/uL (4.8-10.8)
[2018-03-20 12:42] LABS: URINE BILIRUBIN NEGATIVE (NEGATIVE); URINE BLOOD NEGATIVE (NEGATIVE); URINE CLARITY Clear (Clear); URINE COLOR Yellow (YELLOW); URINE GLUCOSE (UA) NORMAL (Normal); URINE LEUKOCYTE ESTERASE NEG Leu/uL (Negative); URINE PROTEIN NEGATIVE (NEGATIVE); URINE UROBILINOGEN NORMAL mg/dL (0.2-1.0)
[2018-03-20 12:50] LABS: ALB/GLOB RATIO 1.6 (1.0-2.1); ALBUMIN 4.8 g/dL (3.5-5.0); ALT/SGPT 31 U/L (21-72); AST/SGOT 18 U/L (17-59); BLOOD UREA NITROGEN 13 mg/dL (9-20); CALCIUM 9.7 mg/dl (8.6-10.4); GFR AFRICAN-AMERICAN > 60; GFR NON-AFRICAN AMERICAN > 60; LIPASE 240 U/L (23-300)
--- NOTE | 2018-03-20 13:35 | RAD ---
Date of service: 03/20/2018 HISTORY: picc line confirmation the technologist has subsequently placed a note noted that this history is incorrect No additional history subsequently provided. COMPARISON: 08/09/2017 FINDINGS: LUNGS: The previously referenced nodular opacity projecting between the right 8th and 9th posterior ribs is renoted on this exam. Pulmonary nodule here needs to be considered. No consolidation seen. PLEURA: No significant pleural effusion identified, no pneumothorax apparent. CARDIOVASCULAR: Top-normal heart size. Pulmonary vasculature appears slightly increased. An also slightly increased since the prior exam. A mild pulmonary venous congestive status is a consideration. Clinical correlation is needed. Lung volumes are more shallow than before. OSSEOUS STRUCTURES: No significant abnormalities. VISUALIZED UPPER ABDOMEN: Normal. OTHER FINDINGS: None. IMPRESSION: Technologist has clarified the history stating that no PICC line was placed. No PICC line or pneumothorax is evident on this exam. No consolidation. As noted on the prior chest x-ray 08/09/2017 study, a right pulmonary nodule is suggested on this exam. A CT chest exam without contrast is recommend for further evaluation. Comments: Study marked for PA review .
[2018-03-20] MEDS ORDERED: Iohexol 350mg/ml 100 ML ONE (13:45)
--- NOTE | 2018-03-20 15:23 | CT ---
Date of service: 03/20/2018 PROCEDURE: CT Abdomen and Pelvis with contrast HISTORY: abd pain PERIUMB COMPARISON: Comparison is made with the previous study dated 10/10/2017 TECHNIQUE: Contrast dose: 100 mL of Visipaque 320. Axial and reformatted coronal and sagittal CT images of the abdomen and pelvis were obtained after IV and oral contrast administration. Radiation dose: Total exam DLP = 662.98 mGy-cm. This CT exam was performed using one or more of the following dose reduction techniques: Automated exposure control, adjustment of the mA and/or kV according to patient size, and/or use of iterative reconstruction technique. FINDINGS: LOWER THORAX: No evidence of acute pathology. LIVER: Hepatic steatosis is again noted. . No gross lesion or ductal dilatation. GALLBLADDER AND BILE DUCTS: Unremarkable. PANCREAS: Unremarkable. No gross lesion or ductal dilatation. SPLEEN: Unremarkable. ADRENALS: Unremarkable. No mass. KIDNEYS AND URETERS: Unremarkable. No hydronephrosis. No solid mass. VASCULATURE: Unremarkable. No aortic aneurysm. BOWEL: Unremarkable. No obstruction. No gross mural thickening. Mild constipation is noted. Few scattered colonic diverticulosis seen without evidence of diverticulitis APPENDIX: Normal appendix. PERITONEUM: Unremarkable. No free fluid. No free air. LYMPH NODES: Unremarkable. No enlarged lymph nodes. BLADDER: Unremarkable. REPRODUCTIVE: Unremarkable. BONES: No acute fracture. OTHER FINDINGS: None. IMPRESSION: No evidence of appendicitis. Mild constipation. No evidence of acute pathology in the abdomen and pelvis.
[2018-03-20 15:53] VITALS: BP 120/77; PULSE 67; RESP 18; TEMP 98.9
== END 2018-03-20 16:01 | disposition home or self-care (01) ==
LOC: C.ER 10:48
DX: R10.33 Periumbilical pain (principal)
CPT/HCPCS: 71045; 74177; 80053; 81001; 83690; 85025; 99284; Q9966; Q9967

== ENCOUNTER 2018-05-22 10:35 | Emergency (ER) | payer OTHER ==
[2018-05-22 10:36] VITALS: BMI 31.5
[2018-05-22 10:51] VITALS: RESP 18
--- NOTE | 2018-05-22 11:32 | C.PDOC ---
History Of Present Illness 42 y/o male presents to the ED complaining of persistent rectal burning for the last 3 months. Was seen at the clinic for same and given anusol, dulcolax, and topical steroid creams without improvement. Patient states he tried to follow up with the clinic but next available appointment is in 3 weeks. Current pain is described as unchanged from prior. No associated bleeding or mass. Denies other new symptoms. Time Seen by Provider: 05/22/18 11:02 Chief Complaint (Nursing): GI Problem History Per: Patient History/Exam Limitations: no limitations Onset/Duration Of Symptoms: Days Current Symptoms Are (Timing): Still Present Past Medical History Reviewed: Historical Data, Nursing Documentation, Vital Signs Vital Signs: Last Vital Signs Temp 97.9 F 05/22/18 10:49 Pulse 79 05/22/18 10:49 Resp 18 05/22/18 10:49 BP 128/86 05/22/18 10:49 Pulse Ox 100 05/22/18 10:49 - Medical History PMH: Denies: Chronic Kidney Disease Other PMH: Hemorrhoids, anal fistula Surgical History: Endoscopy - [facility] Procedures DIVISION OF ANAL SPHINCTER, OPEN APPROACH (05/09/17) DRAINAGE OF ANUS, OPEN APPROACH (02/20/17) DRAINAGE OF RECTUM, OPEN APPROACH (08/09/17) EXCISION OF ANUS, OPEN APPROACH (02/20/17) Family History: States: Unknown Family Hx - Social History Hx Alcohol Use: No Hx Substance Use: No - Immunization History Hx Tetanus Toxoid Vaccination: No Hx Influenza Vaccination: No Hx Pneumococcal Vaccination: No Review Of Systems Except As Marked, All Systems Reviewed And Found Negative. Constitutional: Negative for: Fever, Chills Cardiovascular: Negative for: Light Headedness Respiratory: Negative for: Shortness of Breath Gastrointestinal: Positive for: Rectal Pain (burning), Other (No rectal bleeding or mass). Negative for: Nausea, Vomiting, Diarrhea Neurological: Negative for: Dizziness Physical Exam - Physical Exam Appears: Non-toxic, No Acute Distress Skin: Warm, Dry Head: Atraumatic, Normacephalic Eye(s): bilateral: Normal Inspection Oral Mucosa: Moist Neck: Normal ROM Chest: Symmetrical Respiratory: No Accessory Muscle Use, Other (NARD) Gastrointestinal/Abdominal: Soft, No Tenderness, No Distention Rectal: Deferred Extremity: Bilateral: Atraumatic, Normal Color And Temperature Neurological/Psych: Oriented x3, Normal Speech ED Course And Treatment O2 Sat by Pulse Oximetry: 100 (RA) Pulse Ox Interpretation: Normal Medical Decision Making Medical Decision Making: Plan: Advised patient he will require specialist evaluation. Instructed to continue using current medications and follow up with the clinic. Disposition Counseled Patient/Family Regarding: Diagnosis, Need For Followup - Disposition Referrals: [facility] [Outside] [facility] [Outside] Disposition: HOME/ ROUTINE Disposition Time: 11:31 Condition: GOOD Additional Instructions: FOLLOW UP CLINIC RETURN IF BLEEDING, WORSENING SYMPTOMS. Forms: [employer] (Mongolian), Gen Discharge Inst [place] - POA Present On Arrival: None - Clinical Impression Clinical Impression: Rectal burning - Scribe Statement The provider has reviewed the documentation as recorded by the Scribe (Kayla Carcamo) Provider Attestation: All medical record entries made by the Scribe were at my direction and personally dictated by me. I have reviewed the chart and agree that the record accurately reflects my personal performance of the history, physical exam, medical decision making, and the department course for this patient. I have also personally directed, reviewed, and agree with the discharge instructions and disposition.
[2018-05-22 11:38] VITALS: BP 118/81; PULSE 78; TEMP 98
[2018-05-22 11:44] VITALS: O2SAT 100
== END 2018-05-22 11:48 | disposition home or self-care (01) ==
LOC: C.ER 10:35
DX: K62.89 Other specified diseases of anus and rectum (principal)

== ENCOUNTER 2018-10-02 09:10 | Outpatient (CLI) | payer OTHER | END 2018-10-02 09:11 | disposition home or self-care (01) | LOC: C.CTH 09:10 | DX: R91.1 Solitary pulmonary nodule (principal) ==

== ENCOUNTER 2018-10-23 09:48 | Outpatient (CLI) | payer OTHER | END 2018-10-23 09:49 | disposition home or self-care (01) | LOC: C.RADH 09:48 | DX: K50.80 Crohn's disease of both small and large intestine without complications (principal) ==

== ENCOUNTER 2018-11-20 07:30 | Day surgery (SDC) | payer OTHER ==
[2018-11-20 08:09] VITALS: BMI 35.4
[2018-11-20] MEDS ORDERED: Lactated Ringer's 500 ML IV SCH (10:00)
[2018-11-20] MEDS ORDERED: Pantoprazole 40 mg EC Tab PO STA (10:11)
--- NOTE | 2018-11-20 10:11 | CP.SDSHP ---
Same Day Surgery H & P - History Proposed Procedure: EGD Pre-Op Diagnosis: epigastric pain. abnormal UGI series/thickened folds - Previous Medical/Surgical History Misc: Other (anal fistula, S Cerevisia Ab titer) - Allergies Allergies: Allergies No Known Allergies Allergy (Verified 11/20/18 08:08) - Physical Exam Vital Signs: Vital Signs 11/20/18 11/20/18 08:12 08:36 Temperature 99 F Pulse Rate 80 80 Respiratory 20 Rate Blood Pressure 122/81 O2 Sat by Pulse 99 Oximetry Mental Status: Alert & Oriented x3 Neuro: WNL Heart: WNL Lungs: WNL GI: WNL - Impression Impression: abnormal UGI Series. Epigastric pain Pt. Evaluated Today:Candidate for Anesthesia & Procedure: Yes - Date & Time Date: 11/20/18 Time: 10:11 Short Stay Discharge - Short Stay Discharge Admitting Diagnosis/Reason for Visit: ABNORMAL FINDINGS ON DX IMAGING OF PRT DIGESTIVE T Disposition: HOME/ ROUTINE
[2018-11-20] MEDS ORDERED: Propofol 10 mg/ml Inj (20 ML) ONE (10:12)
[2018-11-20] MEDS ORDERED: Lactated Ringer's 500 ML IV ONE (10:12)
[2018-11-20 10:53] VITALS: TEMP 98.6
[2018-11-20 10:54] VITALS: O2SAT 100
[2018-11-20 11:16] VITALS: BP 108/80; PULSE 80; RESP 20
== END 2018-11-20 11:30 | disposition home or self-care (01) ==
LOC: C.ENDO 07:30
PROVIDERS: ATTEND Internal Medicine Gastroenterology
DX: K29.70 Gastritis, unspecified, without bleeding (principal); K21.0 Gastro-esophageal reflux disease with esophagitis; K44.9 Diaphragmatic hernia without obstruction or gangrene
CPT/HCPCS: 43239; 88305; 88312; 88313; 88342; J2704; J7120